=== PATIENT | female | born 1960 | race Caucasian/White ===

== ENCOUNTER 2021-08-30 02:59 | Day surgery (SDC) | payer OTHER, SELFPAY ==
[2021-08-21 14:10] VITALS: BMI 35.2
[2021-08-30 08:50] VITALS: BP 120/86; PULSE 78; RESP 18; TEMP 36.6; O2SAT 99
[2021-08-30] MEDS: LACTATED RINGERS 1,000 ML 150 ML IV CONT (09:00)
--- NOTE | 2021-08-30 09:20 | P.PNAN_ITS ---
Anes - Initial Pre Proc Eval Procedure: Operation Date: 08/30/21 09:30 Proposed Procedures p Screening Colonoscopy - Cayden Forde MD Date/Time: 08/30/21 09:20 Surgeon: Cayden Forde MD Pre Op Diagnosis: neoplasm screening Patient Data Age: 61 Gender: F Height: 1.65 m Weight: 101.9 kg Last Vital Signs Temp 98 F 08/30/21 08:50 Pulse 78 08/30/21 08:50 Resp 18 08/30/21 08:50 BP 120/86 08/30/21 08:50 Pulse Ox 99 08/30/21 08:50 Allergies Allergy/AdvReac Type Severity Reaction Status Date / Time Sulfa (Sulfonamide Allergy Unknown Other Verified 08/30/21 08:49 Antibiotics) Contrast Media Allergy Intermediate rash Uncoded 08/30/21 08:49 Home Medications Medication Instructions Recorded Confirmed Type amlodipine 2.5 mg PO DAILY 08/21/21 08/21/21 History ergocalciferol (vitamin D2) 50,000 unit PO WEEKLY 08/21/21 08/21/21 History Patient hx anesthesia problems: none Family hx anesthesia problems: none Results Review: All pre-operative results and documents have been reviewed as part of the pre-operative evaluation. [facility] Past Medical History Medical History (Updated 08/30/21 @ 09:16 by Armond Hawkins MD) Asthma GERD (gastroesophageal reflux disease) Hypertension Family History Family History (Updated 07/06/14 @ 07:13 by DOCTOR UNKNOWN) Mother Hypertension Social History Social History Smoking status: Never smoker Alcohol intake: current Alcohol use details: Occasionally Living arrangements: with family Spiritual care concerns: No Anes - Eval Final PreProcedure Day of Procedure 08/30/21 09:20 Patient weight: obese Heart: regular rate and rhythm Lungs: clear to auscultation Airway: Mallampati scale class II Neurological: alert and oriented Last oral intake: >/= 8 hours ASA classification: III Emergent: no Anesthetic plan: proceed Anesthesia type and monitoring: general GIVS and standard monitoring Results Review: All pre-operative results and documents have been reviewed as part of the pre-operative evaluation. Informed Consent: The patient's anesthetic plan and its attendant risks and benefits were discussed with the patient/family/POA. Questions were solicited and answers provided to the satisfaction of the patient/family/POA.
--- NOTE | 2021-08-30 09:23 | WPDGICN ---
Assessment and Plan Assessment and plan (1) Encounter for screening colonoscopy: Code(s): Z12.11 - Encounter for screening for malignant neoplasm of colon Status: Acute Assessment and Plan: Patient presents for screening colonoscopy. Appears to be at average risk for colon polyps. Further recommendations will be given after endoscopy. GI Consult Note Consult date/time: 08/30/21 09:23 HPI: Barbara Martinez is a 61 year old female Presents for screening colonoscopy. Patient reports that her current weight appetite bowel movements are normal. She denies abdominal pain. She has had no bleeding. Family history is noncontributory. She did have a previous colonoscopy more than 10 years ago that revealed no polyps. Review of Systems Review of Systems: All systems reviewed & are unremarkable except as noted in HPI and below PMFSH Past Medical History Medical History (Updated 08/30/21 @ 09:24 by Cayden Forde MD) Asthma GERD (gastroesophageal reflux disease) Hypertension Family History Family History (Updated 07/06/14 @ 07:13 by DOCTOR UNKNOWN) Mother Hypertension Social History Social History Smoking status: Never smoker Alcohol intake: current Alcohol use details: Occasionally Living arrangements: with family Spiritual care concerns: No Meds Home Medications and Allergies Home Medications Medication Instructions Recorded Confirmed Type amlodipine 2.5 mg PO DAILY 08/21/21 08/21/21 History ergocalciferol (vitamin D2) 50,000 unit PO WEEKLY 08/21/21 08/21/21 History Allergies Allergy/AdvReac Type Severity Reaction Status Date / Time Sulfa (Sulfonamide Allergy Unknown Other Verified 08/30/21 08:49 Antibiotics) Contrast Media Allergy Intermediate rash Uncoded 08/30/21 08:49 Vital Signs Vital Signs - 24 hr 08/30/21 08:50 Temperature 98 F Pulse Rate 78 Respiratory Rate 18 Blood Pressure 120/86 Pulse Oximetry 99 Exam Narrative: Physical exam reveals patient to be alert. Vital signs stable. HEENT exam is unremarkable. Patient is anicteric. Lungs are clear to auscultation and percussion. Heart is without murmur or extra sounds. Abdominal exam bowel sounds are present soft nontender with no organomegaly. Digital external rectal exam is normal.
[2021-08-30 10:10] VITALS: BP 119/74; PULSE 79; RESP 20; O2SAT 99
[2021-08-30 10:20] VITALS: BP 142/78; PULSE 72; RESP 20; O2SAT 99
[2021-08-30 10:30] VITALS: BP 139/74; PULSE 74; RESP 20; O2SAT 100
== END 2021-08-30 10:43 | disposition home or self-care (01) ==
PROVIDERS: PCP Physician Assistant; Visit Provider Internal Medicine Gastroenterology
PROC: 0DJD8ZZ Inspection of Lower Intestinal Tract, Via Natural or Artificial Opening Endoscopic (ICD-10-PCS; CPT 45378; principal; 2021-08-30 09:30)
DX: Z12.11 Encounter for screening for malignant neoplasm of colon (principal); K64.8 Other hemorrhoids; J45.909 Unspecified asthma, uncomplicated; K21.9 Gastro-esophageal reflux disease without esophagitis; I10 Essential (primary) hypertension; E66.9 Obesity, unspecified; Z68.37 Body mass index [BMI] 37.0-37.9, adult
CPT/HCPCS: 45378; J2405; J2704; J7120

== ENCOUNTER 2022-08-06 12:29 | Outpatient (CLI) | payer OTHER, SELFPAY ==
--- NOTE | 2022-08-06 12:59 | ECG_ITS ---
Measurements Intervals [place] Rate: 70 P: 20 WA: 155 QRS: -10 QRSD: 101 T: 19 QT: 397 QTc: 431 Interpretive Statements SINUS RHYTHM INCOMPLETE RIGHT BUNDLE BRANCH BLOCK VOLTAGE CRITERIA FOR LVH BORDERLINE T WAVE ABNORMALITY- ANTERIOR LEADS BASELINE ARTIFACT- I, II, III, V3 BORDERLINE ECG NO PREVIOUS ECG AVAILABLE FOR COMPARISON Electronically Signed On 08-06-2022 14:25:34 CDT by Juan Borden D.O.
== END 2022-08-06 12:30 | disposition home or self-care (01) ==
PROVIDERS: PCP Physician Assistant; Visit Provider Orthopaedic Surgery
DX: Z01.810 Encounter for preprocedural cardiovascular examination (principal); I10 Essential (primary) hypertension; I45.19 Other right bundle-branch block
CPT/HCPCS: 93005

== ENCOUNTER 2022-08-07 02:00 | Day surgery (SDC) | payer OTHER, SELFPAY ==
[2022-08-05 12:48] VITALS: BMI 34.9
--- NOTE | 2022-08-05 13:00 | PC.NURSE ---
Report to the Outpatient Waiting Room, entrance under the green pavilion located off [facility], at time 10:00 on date 08/07/22. OR Time: 12:00. Time changes happen often and if your time is changed the preop area will call you the afternoon before. - You and your visitor will be asked to self-screen and do not enter if you have any COVID symptoms. - Only one visitor and NO children visitors are allowed at this time. - The patient visitor is requested to leave or wait in car when not with patient due to restrictions. - A mask is required within the hospital. Patients may have clear liquids (water, carbonated beverages, clear teas, apple juice) until 3 hours prior to surgery (9:00) with a maximum of 20 ounces. - No food from midnight until time of surgery Take the following medications with a SIP of water the morning of surgery: N/A Medications to discontinue per physician: VITAMINS Date to take last dose: NO MORE UNTIL AFTER SURGERY Please no make-up, nail divehi, hairspray, perfume, deodorant, or body powder the day of surgery. No jewelry (including any body piercings) or valuables the day of surgery, leave them at home. Please take a shower or bath the night before, or the morning of, surgery with an antibacterial soap. Wear comfortable, loose fitting clothing. - Jewelry must be removed prior to entering the operating room. Rings and piercings that are not removed may be cut off. - The hospital will not accept responsibility for valuables. - Please leave all valuables, including medications, at home the day of surgery. If you are going home after surgery, a licensed tractor driver must drive you home. - NO public transportation without another adult. - We recommend that an adult stay with you for 24 hours following discharge. - We also recommend that you do not drive, make important decision, drink alcoholic beverages, or take any drugs that were not prescribed by your health care provider for at least 24 hours after your discharge time. Follow any additional instructions given to you from your surgeon. If you or anyone in your household have experienced Covid symptoms in the past week, please notify your surgeon or the nurse liaison at the phone number below for possible testing. Telephone instructions given to PT - KIKE MOONEY and asked if any additional questions and then verbalized understanding. Patient advised to call surgeon office or pre surgery nurse liaison [phone] if any additional questions.
--- NOTE | 2022-08-06 13:16 | WPDANESEPPF ---
Anes - Initial Pre Proc Eval Procedure: Operation Date: 08/07/22 12:00 Proposed Procedures p Open Reduction Internal Fixation of Left Wrist Fracture - Sheldon Campos MD Date/Time: 08/06/22 13:16 Surgeon: Sheldon Campos MD Pre Op Diagnosis: left distal radius fracture Patient Data Age: 62 Gender: F Height: 1.65 m Weight: 95.25 kg Allergies Allergy/AdvReac Type Severity Reaction Status Date / Time Sulfa (Sulfonamide Allergy Unknown Rash Verified 08/07/22 10:14 Antibiotics) Contrast Media Allergy Intermediate rash Uncoded 08/07/22 10:14 Home Medications Medication Instructions Recorded Confirmed Type amlodipine 2.5 mg tablet 2.5 mg PO DAILY 08/21/21 08/07/22 History ergocalciferol (vitamin D2) 1,250 50,000 unit PO WEEKLY 08/21/21 08/07/22 History mcg (50,000 unit) capsule hydrocodone 5 mg-acetaminophen 325 1 tablet PO Q6H PRN pain #30 tabs 08/07/22 Rx mg tablet ibuprofen 800 mg tablet 800 mg PO TID PRN pain #30 tabs 08/07/22 Rx ondansetron 8 mg disintegrating 8 mg PO Q8H PRN nausea and 08/07/22 Rx tablet vomiting #10 tabs sennosides 8.6 mg-docusate sodium 1 tab-cap PO BID PRN constipation 08/07/22 Rx 50 mg tablet (Senna with Docusate #20 tabs Sodium) Patient hx anesthesia problems: none Family hx anesthesia problems: none Results Review: All pre-operative results and documents have been reviewed as part of the pre-operative evaluation. [facility] Past Medical History Medical History (Updated 08/06/22 @ 13:17 by Noah Oates MD) Asthma GERD (gastroesophageal reflux disease) HTN (hypertension) Hypertension Left wrist pain Wrist fracture, left Surgical History Surgical History History of surgery on wrist Rt wrist ORIF distal radius fx. Family History Family History Mother Hypertension Social History Social History Smoking status: Never smoker Alcohol intake: current Alcohol use details: Occasionally Substance use: never Substance use type: does not use Living arrangements: with family Spiritual care concerns: No Anes - Eval Final PreProcedure Day of Procedure 08/06/22 13:16 Patient weight: obese Heart: regular rate and rhythm Lungs: clear to auscultation Airway: Mallampati scale class II Neurological: alert and oriented Last oral intake: >/= 8 hours ASA classification: III Emergent: no Anesthetic plan: proceed Anesthesia type and monitoring: general LMA and standard monitoring Results Review: All pre-operative results and documents have been reviewed as part of the pre-operative evaluation. Informed Consent: The patient's anesthetic plan and its attendant risks and benefits were discussed with the patient/family/POA. Questions were solicited and answers provided to the satisfaction of the patient/family/POA.
--- NOTE | 2022-08-06 13:18 | WPDANESPNB ---
Anes - Peripheral Nerve Block Date/Time: 08/06/22 13:18 I have discussed with the patient/family/POA the placement of a peripheral nerve block for post-operative pain management, including associated risks, benefits, complications, and side effects. Alternative methods of post-operative analgesia were detailed. Questions were solicited and answers provided to the satisfaction of the patient/family/POA. Time-Out: A pre-procedural Time-Out was completed immediately before starting the procedure and confirmed: Patient Identification, Site, Procedure, Patient Position and the Availability of Requisite Equipment. Clinical Indications: Acute post-operative pain management requested by the operative surgeon. Nerve Block Insertion Note Anes-nerve block: supraclavicular left Patient position: supine Skin prep: chlorhexidine Needle: 22 gauge, stimulating, insulated echogenic needle. Needle length: 80 mm Technique: ultrasound (in plane) Injectate: bupivacaine 0.5% with epi 5 mcg/ml (20cc) Observations: tolerated well Complications: none Procedure start time:: 1145 Procedure end time:: 1150
[2022-08-07] VITALS (7 sets, daily range): BP systolic 115–153; BP diastolic 56–99; PULSE 66–85; RESP 12–18; TEMP 36.4; O2SAT 96–99
--- NOTE | ~2022-08-07 | XR_ITS ---
EXAMINATION: XR surgery orthopedic DATE: 08/07/2022 15:18 INDICATION: ORIF left wrist fracture TECHNIQUE: 3 fluoroscopic images of the left wrist were obtained during procedure performed by Dr. Kevin barth. Radiologist was not present for the imaging or procedure. The amount of fluoroscopy time used during this procedure was 0.2 minutes. COMPARISON: None. FINDINGS: Interval open reduction and internal fixation of the previously dorsally impacted comminuted intra-ar ticular fracture of the distal left radius. Alignment is now near-anatomic with neutral tilt of the d istal articular surface. Unchanged minimally displaced fracture across the base of the ulnar styloid process which remains unfixed. Mild osteoarthritis at the first carpometacarpal joint. Expected small amount of soft tissue gas the operative bed. IMPRESSION: 1. Near-anatomic alignment post open reduction internal fixation of a comminuted intra-articular frac ture of the distal left radius. 2. Unchanged minimally displaced unfixed ulnar styloid avulsion fracture. Reviewed, dictated and finalized at location A. IMPRESSION: 1. Near-anatomic alignment post open reduction internal fixation of a comminute d intra-articular fracture of the distal left radius. 2. Unchanged minimally displaced unfixed ulnar styloid avulsion fracture.
--- NOTE | 2022-08-07 07:06 | WPDHPUPDATE1 ---
History and Physical Update Update Date/Time: 08/07/22 07:06 History and Physical has been reviewed, including an updated exam of the patient. There are NO changes in the patient's condition. Risks, benefits, and alternatives have been discussed and questions answered. Patient agrees to proceed with procedure.
[2022-08-07] MEDS: ACETAMINOPHEN 500 MG TABLET 1000 MG PO (10:25)
[2022-08-07] MEDS: LACTATED RINGERS 1,000 ML 30 ML IV CONT (10:45)
[2022-08-07] MEDS: KETOROLAC 15 MG/ML VIAL (*BKC) IV PUSH (11:30)
[2022-08-07] MEDS: ceFAZolin 2 GM/D5W 50 ML 2 GM/50 ML BAG IVPB (11:57)
--- NOTE | 2022-08-07 13:16 | W.PM.PROC2 ---
Procedure Note - Detailed Date of Procedure 08/07/22 Pre-op Diagnosis left distal radius fracture Post-op Diagnosis Same Procedure Performed Open reduction internal fixation left distal radius fracture with comminution fixation of greater than 3 fragments, intra-articular. Surgeon Sheldon Campos MD Vice President Financial preschool assistant Anesthesia General Indications 62-year-old woman with left distal radius fracture with comminution and intra-articular extension as well as angulation. Patient desires operative treatment. Findings Comminuted fracture with multiple pieces, intra-articular. Description of Procedure After informed consent the operative extremity was marked in the preoperative holding area. Patient received intravenous antibiotics. Patient taken to the operating room where they underwent general anesthesia. Positioned supine on operating table. Time-out performed confirming the patient, patient's site of surgery and the plan. Left upper extremity prepped and draped in the usual sterile surgical fashion using a ChloraPrep skin solution. Hand and wrist exsanguinated and arm tourniquet inflated to 225 mmHg. Standard volar flexor carpi radialis incision utilized. Fifteen blade knife used to make longitudinal incision. Flexor carpi radialis tendon identified tendon sheath incised in line with skin incision. Tendon retracted to protect the neurovascular elements. Floor of the tendon sheath incised with a 15 blade knife. Flexor pollicis retracted medial. pronator quadratus then divided off the watershed line and reflected ulnarward to expose the distal radius and the fracture. Fracture was then reduced provisionally pinned. Image intensification confirm reduction. Fixation achieved with the distal radius volar plate. This was provisionally pinned into place and confirmed with image intensification. Fixation to the proximal fragment with a 3.5 mm screw. Distal fracture fixation achieved with 2.0 mm locking pegs and 2.0 mm fully threaded locking screws for the radial styloid. Fixation was then completed proximally with the remaining 3.5 mm screws. Final reduction of the fracture, alignment of the wrist joint and placement of the hardware verified with image intensification. Wound thoroughly irrigated with antibiotic solution. Pronator repaired with 3 0 Monocryl interrupted suture. Skin closed with interrupted subcutaneous 000 Monocryl interrupted suture and running 4-0 nylon stitch. Sterile dressing applied. Padded dressing and splint then applied. Tourniquet released and good capillary refill noted in the fingers and thumb. Patient awoke from anesthesia, extubated and taken to the recovery room in stable condition. All sponge and instrument counts correct at the end of case. Implants [employer] distal radius volar locking plate with 3.5 mm screws x3 and locking smooth pegs distally. Estimated Blood Loss -1.0 Tourniquet Time 55 Drains No Packing No Pathology None sent Complications None Condition Stable Disposition PACU
== END 2022-08-07 15:09 | disposition home or self-care (01) ==
PROVIDERS: PCP Physician Assistant; Visit Provider Orthopaedic Surgery
PROC: (CPT 25575; principal; 2022-08-07 12:00)
DX: S62.102A Fracture of unspecified carpal bone, left wrist, initial encounter for closed fracture (principal); W01.0XXA Fall on same level from slipping, tripping and stumbling without subsequent striking against object, initial encounter; Y93.01 Activity, walking, marching and hiking
CPT/HCPCS: 25609; 93005; 99199; A9270; C1713; J0690; J1100; J1170; J1885; J2250; J2370; J2405; J2704; J3010; J7120

== ENCOUNTER 2024-02-26 10:33 | Outpatient (CLI) | payer OTHER, SELFPAY ==
--- NOTE | ~2024-02-26 | XR_ITS ---
EXAMINATION: XR abdomen/kub 1V DATE: 02/26/2024 10:52 INDICATION: Calculus of kidney. TECHNIQUE: A supine view of the abdomen on 2 radiographs was obtained. COMPARISON: None. FINDINGS: There are no dilated loops of bowel. There are multiple stones in left kidney measuring up to 2.9 cm. There is an 8 x 6 mm calcification in the area of proximal right ureter at L5-S1. There ar e phleboliths in the pelvis. IMPRESSION: 1. Left kidney stones. 2. 8 x 6 mm calcification in the area of proximal right ureter that may be a ureteral stone or phlebo lith. Reviewed, dictated and finalized at location E. IMPRESSION: 1. Left kidney stones. 2. 8 x 6 mm calcification in the area of proximal right ureter that may be a ur eteral stone or phlebolith.
== END 2024-02-26 10:34 ==
PROVIDERS: PCP Urology; Visit Provider Urology
DX: N20.2 Calculus of kidney with calculus of ureter (principal)
CPT/HCPCS: 74018

== ENCOUNTER 2024-03-03 00:36 | Day surgery (SDC) | payer OTHER, SELFPAY ==
[2024-03-02 08:30] VITALS: BMI 34.9
--- NOTE | 2024-03-02 08:34 | PC.NURSE ---
Report to the Outpatient Waiting Room, entrance under the green pavilion located off [facility], at time 1245 on date 03/03/24. Planned Procedure Time: 1445. Time changes happen often and if your time is changed the preop area will call you the afternoon before. - You and your visitor will be asked to self-screen and do not enter if you have any COVID symptoms. - A mask is optional within the hospital at this time. Patients may have clear liquids (water, carbonated beverages, clear teas, apple juice) until 3 hours prior to surgery with a maximum of 20 ounces. - No food from midnight until time of surgery Take the following medications with a SIP of water the morning of surgery: NONE DO NOT STOP ANY OF YOUR OTHER PRESCRIPTION MEDICATIONS PRIOR TO SURGERY ?EXCEPT THE FOLLOWING Medications to discontinue per physician: VITAMINS Date to take last dose: NO MORE UNTIL AFTER SURGERY Please no make-up, nail emirati, hairspray, perfume, deodorant, or body powder the day of surgery. No jewelry (including any body piercings) or valuables the day of surgery, leave them at home. Please take a shower or bath the night before, or the morning of, surgery with an antibacterial soap. Wear comfortable, loose fitting clothing. - Jewelry must be removed prior to entering the operating room. Rings and piercings that are not removed may be cut off. - The hospital will not accept responsibility for valuables. - Please leave all valuables, including medications, at home the day of surgery. If you are going home after surgery, a licensed explosives truck driver must drive you home. - NO public transportation without another adult if you receive anesthesia. - We recommend that an adult stay with you for 24 hours following discharge. - We also recommend that you do not drive, make important decision, drink alcoholic beverages, or take any drugs that were not prescribed by your health care provider for at least 24 hours after your discharge time. Follow any additional instructions given to you from your surgeon. If you or anyone in your household have experienced Covid symptoms in the past week, please notify your surgeon or the nurse liaison at the phone number below for possible testing. Telephone instructions given to LOLIS STOKES and asked if any additional questions and then verbalized understanding. Patient advised to call surgeon office or pre surgery nurse liaison [phone] if any additional questions.
[2024-03-03] VITALS (8 sets, daily range): BP systolic 147–156; BP diastolic 68–88; PULSE 65–80; RESP 14–20; TEMP 36.6–36.8; O2SAT 98–100
--- NOTE | ~2024-03-03 | XR_ITS ---
EXAMINATION: XR retrograde pyelo w/stent RT DATE: 03/03/2024 15:41 INDICATION: Right ureteral stone. TECHNIQUE: 3 intraoperative spot fluoroscopic views of the abdomen and pelvis were obtained. I was no t present. Fluoroscopy exposure time was 68 seconds. COMPARISON: None. FINDINGS: The right-sided retrograde pyelogram demonstrates right hydronephrosis. The final images de monstrate a right internal ureteral stent in expected position. IMPRESSION: 1. Right internal ureteral stent in expected position. Reviewed, dictated and finalized at location E.
--- NOTE | 2024-03-03 06:09 | WPDHPUPDATE1 ---
History and Physical Update Update Date/Time: 03/03/24 06:09 History and Physical has been reviewed, including an updated exam of the patient. There are NO changes in the patient's condition. Risks, benefits, and alternatives have been discussed and questions answered. Patient agrees to proceed with procedure.
[2024-03-03] MEDS: LACTATED RINGERS 1,000 ML 30 ML IV CONT (13:24)
--- NOTE | 2024-03-03 13:36 | ECG_ITS ---
SEE SCANNED COPY FOR CONFIRMED REPORT MTDD
--- NOTE | 2024-03-03 14:10 | WPDANESEPPF ---
Anes - Initial Pre Proc Eval Procedure: Operation Date: 03/03/24 14:45 Proposed Procedures p Cystoscopy, Right Ureteroscopy, Right Stone Extraction, Possible Right Retrograde Pyelogram, Possible Right Stent Placement, Possible Holmium Laser - Pk Lozano MD Date/Time: 03/03/24 14:10 Surgeon: Pk Lozano MD Pre Op Diagnosis: Rt Ureteral Stone Patient Data Age: 63 Gender: F Height: 1.65 m Weight: 103 kg Last Vital Signs Temp 98.3 F 03/03/24 13:00 Pulse 72 03/03/24 13:00 Resp 16 03/03/24 13:00 BP 150/73 H 03/03/24 13:00 Pulse Ox 99 03/03/24 13:00 O2 Del Method Room Air 03/03/24 13:00 Allergies Allergy/AdvReac Type Severity Reaction Status Date / Time Sulfa (Sulfonamide Allergy Unknown Rash Verified 03/03/24 13:37 Antibiotics) Contrast Media Allergy Intermediate rash Uncoded 03/03/24 13:37 Home Medications Medication Instructions Recorded Confirmed Type albuterol sulfate 90 mcg/actuation 1 inh inhalation PRN PRN Shortness 10/20/23 03/03/24 History aerosol inhaler Of Breath amlodipine 2.5 mg tablet 2.5 mg PO DAILY #90 tabs 11/25/23 03/03/24 Rx escitalopram oxalate 10 mg tablet 10 mg PO DAILY #30 tabs 02/01/24 03/03/24 Rx meclizine 12.5 mg tablet 12.5 mg PO TID PRN dizziness #30 02/01/24 03/03/24 Rx tabs cholecalciferol (vitamin D3) 25 25 mcg PO DAILY 03/02/24 03/03/24 History mcg (1,000 unit) tablet (Vitamin D3) Patient hx anesthesia problems: none Family hx anesthesia problems: none Results Review: All pre-operative results and documents have been reviewed as part of the pre-operative evaluation. [facility] Past Medical History Medical History Allergic rhinitis Asthma Generalized anxiety disorder GERD (gastroesophageal reflux disease) HTN (hypertension) Vertigo Surgical History Surgical History History of surgery on wrist Rt wrist ORIF distal radius fx. Left ORIF wrist on 08/07/[address] Campos Family History Family History Mother Hypertension Father Throat cancer Diabetes mellitus Heart disease Social History Social History Smoking status: Never smoker Alcohol intake: current Alcohol use details: RARE Substance use: never Substance use type: does not use Do You Feel Safe in your Home?: Yes Lack of Transportation: No Lack of Food: Never True Current Housing: I Have Housing Concerned About Future Housing: No Difficulty Paying Gas/Electric Bills: No Difficulty Paying for Meds: No Currently Unemployed: YES Education: Master's Degree or Higher Difficulty w/ Childcare or Family Care: No Living arrangements: with family Occupation/Education: retired Gender identity (if verbalized by the patient): Female Sexual Orientation (if Verbalized by the Patient): Straight or Heterosexual Spiritual care concerns: No Anes - Eval Final PreProcedure Day of Procedure 03/03/24 14:10 Patient weight: normal Heart: regular rate and rhythm Lungs: clear to auscultation Airway: Mallampati scale Neurological: alert and oriented Last oral intake: >/= 8 hours ASA classification: III Emergent: no Anesthetic plan: proceed Anesthesia type and monitoring: general and standard monitoring Results Review: All pre-operative results and documents have been reviewed as part of the pre-operative evaluation. Pt states that she walks regularly, short distances, no cp or sob. Informed Consent: The patient's anesthetic plan and its attendant risks and benefits were discussed with the patient/family/POA. Questions were solicited and answers provided to the satisfaction of the patient/family/POA.
--- NOTE | 2024-03-03 15:36 | W.PM.PROC2 ---
Procedure Note - Detailed Date of Procedure 03/03/24 Pre-op Diagnosis Rt Ureteral Stone Post-op Diagnosis Same Procedure Performed Cystoscopy, right ureteroscopy with laser lithotripsy, stone extraction, retrograde pyelography and stent placement Surgeon Pk Lozano MD Anesthesia General Description of Procedure patient brought the op suite where she has prepped draped in routine sterile fashion while in dorsal lithotomy position after the uneventful induction of a general anesthetic. Cystoscopy undertaken with a 19 F rigid cystoscope. There was no intravesical foreign body or neoplasm and bladder mucosa is without hyperemia or signs of neoplastic changes. She has a single orthotopic ureteral orifice bilaterally. Bladder neck and urethra endoscopically normal. A 0.035 in glidewire was advanced in to her right renal pelvis and the distal ureter was dilated with an 8 F 10 F dilator. Ureteroscopy was undertaken with a short tapered semi-rigid ureteral scope. She has a very impacted 8 mm right mid ureteral calculus. Using a 200 micron Rusty laser fiber and a dusting mode I fractured the stone into multiple tiny pieces, all of which were removed with a 1.9 F disposable stone basket. A 4.8 F variable length stent is positioned with proximal coil in the renal pelvis and distal coil in the bladder. Scopes wires were removed and she was taken recovery room in good condition. Drains No Packing No Pathology None sent Complications No immediate complications Condition Stable
== END 2024-03-03 17:20 | disposition home or self-care (01) ==
PROVIDERS: PCP Physician Assistant; Visit Provider Urology
PROC: (CPT 52352; principal; 2024-03-03 14:45)
DX: N20.1 Calculus of ureter (principal); I10 Essential (primary) hypertension; F41.9 Anxiety disorder, unspecified; K21.9 Gastro-esophageal reflux disease without esophagitis; J45.909 Unspecified asthma, uncomplicated; Z79.51 Long term (current) use of inhaled steroids; Z98.890 Other specified postprocedural states; Z82.49 Family history of ischemic heart disease and other diseases of the circulatory system; Z80.1 Family history of malignant neoplasm of trachea, bronchus and lung
CPT/HCPCS: 52356; 74420; 82365; 88300; 93005; C1769; C1894; C2617; J2250; J3010; J7120; Q9966

== ENCOUNTER 2024-04-18 10:28 | Emergency (ER) | payer OTHER, SELFPAY ==
--- NOTE | ~2024-04-18 | XR_ITS ---
Clinical Indication: Cough PA and lateral views of the chest: Comparison: None Findings: Hazy right upper lobe airspace consolidation is compatible with pneumonia. Left lung clear. Cardiomediastinal silhouette is within normal limits. Bones and soft tissues are unremarkable. Impression: Right upper lobe pneumonia. Reviewed, dictated and finalized at location . Impression: Right upper lobe pneumonia.
--- NOTE | 2024-04-18 10:41 | ED.URI ---
HPI - URI/Sore Throat General Chief Complaint: Upper Respiratory Infection Stated Complaint: Been sick/can't take deep breaths Time Seen by Provider: 04/18/24 10:46 Source: patient Mode of arrival: ambulatory Limitations: no limitations History of Present Illness HPI Narrative: 63-year-old female presented for complaint of persistent cough for over 1 week. Endorses right rib pain with deep breath and with coughing, and shortness of breath when walking up stairs. Endorses at the onset she had fever, vomiting, and fatigue. She tested negative for COVID at the time. She has been taking Mucinex for symptoms. Denies chest pain, heart racing, wheezing or lethargy. Related Data Home Medications Medication Instructions Recorded Confirmed albuterol sulfate 90 mcg/actuation 1 inh inhalation PRN PRN Shortness 10/20/23 04/18/24 aerosol inhaler Of Breath cholecalciferol (vitamin D3) 25 25 mcg PO DAILY 03/02/24 04/18/24 mcg (1,000 unit) tablet (Vitamin D3) Allergies Allergy/AdvReac Type Severity Reaction Status Date / Time Sulfa (Sulfonamide AdvReac Mild Rash Verified 04/18/24 10:31 Antibiotics) Contrast Media AdvReac Mild rash Uncoded 04/18/24 10:31 Review of Systems Review of Systems: CONSTITUTIONAL: Denies body aches, fever, chills, or sweats. EYES: Denies visual changes, redness, or discharge. ENT: Denies rhinorrhea, congestion, sore throat, or otalgia. CARDIOVASCULAR: Denies chest pain, palpitations, or edema. RESPIRATORY: Reports cough, denies sob, wheezing. GASTROINTESTINAL: Denies abdominal pain, nausea, vomiting, or diarrhea. SKIN: Denies rash, itching, or wounds. MUSCULOSKELETAL: reports right rib pain Denies back pain, joint pain, or myalgia. NEUROLOGIC: Denies headache, numbness, tingling, or weakness. All systems reviewed & are unremarkable except as noted in HPI and below PMFSH Past Medical History Medical History Allergic rhinitis Asthma Generalized anxiety disorder GERD (gastroesophageal reflux disease) HTN (hypertension) Vertigo Surgical History Surgical History History of surgery on wrist Rt wrist ORIF distal radius fx. Left ORIF wrist on 08/07/[address] Campos Family History Family History Mother Hypertension Father Throat cancer Diabetes mellitus Heart disease Social History Social History Smoking status: Never smoker Alcohol intake: current Alcohol use details: RARE Substance use: never Substance use type: does not use Do You Feel Safe in your Home?: Yes Lack of Transportation: No Lack of Food: Never True Current Housing: I Have Housing Concerned About Future Housing: No Difficulty Paying Gas/Electric Bills: No Difficulty Paying for Meds: No Currently Unemployed: YES Education: Master's Degree or Higher Difficulty w/ Childcare or Family Care: No Living arrangements: with family Occupation/Education: retired Gender identity (if verbalized by the patient): Female Sexual Orientation (if Verbalized by the Patient): Straight or Heterosexual Spiritual care concerns: No Comments At time of signature, I have reviewed and agree with nursing past medical, surgical, social and family history unless otherwise noted. Please see nursing chart for further information. There is no relevant family history pertinent to the presenting complaint Exam Narrative: GENERAL: Well-appearing, in no acute distress. EYES: EOMI. No redness or drainage. Conjunctivae normal. ENT: Mucous membranes pink and moist. No rhinorrhea. TMs normal bilaterally. Throat normal. Uvula midline. NECK: Normal AROM. Supple. CHEST: No respiratory distress. lungs clear to all parmar. Nontender right rib. HEART: Regular rate and rhythm. No m
[2024-04-18 10:43] VITALS: BP 123/70; PULSE 81; RESP 16; TEMP 36.6; O2SAT 99
== END 2024-04-18 11:32 | disposition home or self-care (01) ==
PROVIDERS: Emergency Provider Nurse Practitioner Family; PCP Physician Assistant
DX: J18.1 Lobar pneumonia, unspecified organism (principal); J45.909 Unspecified asthma, uncomplicated; K21.9 Gastro-esophageal reflux disease without esophagitis; I10 Essential (primary) hypertension
CPT/HCPCS: 71046; 99213; G0463

== ENCOUNTER 2024-05-17 13:47 | Emergency (ER) | payer OTHER, SELFPAY ==
--- NOTE | 2024-05-17 13:51 | ED.GENADULT ---
HPI - General Adult General Chief complaint: Upper Respiratory Infection Stated complaint: congestion/tightness in chest Time Seen by Provider: 05/17/24 13:55 Source: patient, RN notes reviewed and old records reviewed Mode of arrival: ambulatory Limitations: no limitations History of Present Illness HPI narrative: 63 yo female presents to the [facility] with Conplaints of congestion, states has been going on for ?maybe a week. ? Patient was seen and treated for Pneumonia 04/18/24 Patient states she has a history of asthma, has allergies to cats however she does have 2 cats that are currently living with her that her her daughters. Has been sleeping or napping with hats. Patient states that she noticed some wheezing. Has not used her albuterol inhaler. Unsure if it is still good. Patient denies any chest pain. Denies any shortness of breath currently. Denies any fevers Related Data Home Medications Medication Instructions Recorded Confirmed albuterol sulfate 90 mcg/actuation 1 inh inhalation PRN PRN Shortness 10/20/23 05/17/24 aerosol inhaler Of Breath cholecalciferol (vitamin D3) 25 25 mcg PO DAILY 03/02/24 05/17/24 mcg (1,000 unit) tablet (Vitamin D3) cetirizine 10 mg tablet (Zyrtec) 10 mg PO DAILY 05/17/24 05/17/24 Allergies Allergy/AdvReac Type Severity Reaction Status Date / Time Sulfa (Sulfonamide AdvReac Mild Rash Verified 05/17/24 14:10 Antibiotics) Contrast Media AdvReac Mild rash Uncoded 05/17/24 14:10 Review of Systems Review of Systems: All systems reviewed & are unremarkable except as noted in HPI and below Constitutional: Constitutional: Reports no additional constitutional complaints Eyes: Eyes: Reports no additional eye complaints ENT: Reports system reviewed and no additional complaints, except as documented Cardiovascular: Cardiovascular: Reports no additional cardiovascular complaints, Denies chest pain and Denies dyspnea Respiratory: Respiratory: Reports as per HPI, Denies chest congestion, Denies cough, Reports dyspnea and Reports wheezing Gastrointestinal: Gastrointestinal: Reports no additional gastrointestinal complaints, Denies abdominal pain, Denies nausea and Denies vomiting Musculoskeletal: Musculoskeletal: Reports no additional musculoskeletal complaints Integumentary/Breasts: Skin/Breast: Reports system reviewed and no additional complaints, except as docu Neurologic: Reports system reviewed and no additional complaints, except as documented Psychiatric: Psychiatric: Reports no additional psychiatric complaints Allergic/Immunologic: Allergic/Immunologic: Reports no additional allergic/immunologic complaints [facility] Past Medical History Medical History Allergic rhinitis Asthma Generalized anxiety disorder GERD (gastroesophageal reflux disease) HTN (hypertension) Vertigo Surgical History Surgical History History of surgery on wrist Rt wrist ORIF distal radius fx. Left ORIF wrist on 08/07/[address] Campos Family History Family History Mother Hypertension Father Throat cancer Diabetes mellitus Heart disease Social History Social History Smoking status: Never smoker Alcohol intake: current Alcohol use details: RARE Substance use: never Substance use type: does not use Do You Feel Safe in your Home?: Yes Lack of Transportation: No Lack of Food: Never True Current Housing: I Have Housing Concerned About Future Housing: No Difficulty Paying Gas/Electric Bills: No Difficulty Paying for Meds: No Currently Unemployed: YES Education: Master's Degree or Higher Difficulty w/ Childcare or Family Care: No Living arrangements: with family Occupation/Education: retired Gender identity (if verbalized by the patien
[2024-05-17 13:55] VITALS: BP 142/79; PULSE 72; RESP 15; TEMP 36.2; O2SAT 98
== END 2024-05-17 14:14 | disposition home or self-care (01) ==
PROVIDERS: Emergency Provider Nurse Practitioner; PCP Physician Assistant
DX: J45.909 Unspecified asthma, uncomplicated (principal); K21.9 Gastro-esophageal reflux disease without esophagitis; I10 Essential (primary) hypertension
CPT/HCPCS: 99213; G0463

== ENCOUNTER 2024-08-01 11:45 | Outpatient (CLI) | payer OTHER, SELFPAY ==
--- NOTE | ~2024-08-01 | XR_ITS ---
XR abdomen/kub 1V Ordering provider: Leroy Velarde MD History: . Kidney stone . Comparison: February 26, 2024 FINDINGS: BOWEL: Nonobstructive bowel gas pattern. ORGANOMEGALY: None. SIGNIFICANT PATHOLOGIC CALCIFICATIONS: None. OTHER: No free air is seen under the diaphragm. Degenerative changes of the spine. IMPRESSION: NO ACUTE ABDOMINAL FINDINGS. Reviewed, dictated and finalized at location A.
== END 2024-08-01 11:46 | disposition home or self-care (01) ==
PROVIDERS: PCP Urology; Visit Provider Urology
DX: N20.0 Calculus of kidney (principal)
CPT/HCPCS: 74018

== ENCOUNTER 2024-09-09 10:59 | Emergency (ER) | payer OTHER, SELFPAY ==
--- NOTE | ~2024-09-09 | XR_ITS ---
EXAMINATION: XR chest 2V DATE: 09/09/2024 11:30 INDICATION: Cough. TECHNIQUE: Frontal and lateral views of the chest were obtained. COMPARISON: Chest 2 views 04/18/2024 FINDINGS: There is no pneumonia, pleural effusion, or pneumothorax. The heart size is normal. IMPRESSION: 1. No acute cardiopulmonary disease. Reviewed, dictated and finalized at location B.
[2024-09-09 11:10] VITALS: BP 114/69; PULSE 80; RESP 16; TEMP 36.3; O2SAT 99
--- NOTE | 2024-09-09 11:13 | ED.GENADULT ---
HPI - General Adult General Chief complaint: Asthma Stated complaint: side pain, chest pain Time Seen by Provider: 09/09/24 11:17 Source: patient, RN notes reviewed and old records reviewed Mode of arrival: ambulatory Limitations: no limitations History of Present Illness HPI narrative: 64-year-old female presents to the [facility] with cough, shortness of breath, wheezing. Reports a history of asthma. Patient is most concerned that she has pneumonia. States that she felt a twinge in her lung earlier. States it felt like when she had pneumonia a couple months ago. Patient is in no acute distress. However patient is wheezing. Patient states that she used her inhaler once time this morning Symptoms started approximately 4-5 days ago Related Data Home Medications Medication Instructions Recorded Confirmed cholecalciferol (vitamin D3) 25 25 mcg PO DAILY 03/02/24 09/09/24 mcg (1,000 unit) tablet (Vitamin D3) cetirizine 10 mg tablet (Zyrtec) 10 mg PO DAILY 05/17/24 09/09/24 Allergies Allergy/AdvReac Type Severity Reaction Status Date / Time Sulfa (Sulfonamide AdvReac Mild Rash Verified 09/09/24 11:10 Antibiotics) Contrast Media AdvReac Mild rash Uncoded 09/09/24 11:10 Review of Systems Review of Systems: All systems reviewed & are unremarkable except as noted in HPI and below Constitutional: Constitutional: Reports no additional constitutional complaints ENT: Reports system reviewed and no additional complaints, except as documented Cardiovascular: Cardiovascular: Reports no additional cardiovascular complaints, Denies chest pain and Denies dyspnea Respiratory: Respiratory: Reports as per HPI, Denies chest congestion, Reports cough, Reports dyspnea and Reports wheezing Gastrointestinal: Gastrointestinal: Reports no additional gastrointestinal complaints, Denies abdominal pain, Denies nausea and Denies vomiting Musculoskeletal: Musculoskeletal: Reports no additional musculoskeletal complaints Integumentary/Breasts: Skin/Breast: Reports system reviewed and no additional complaints, except as docu PMFSH Past Medical History Medical History Allergic rhinitis Asthma Generalized anxiety disorder GERD (gastroesophageal reflux disease) HTN (hypertension) Vertigo Surgical History Surgical History History of surgery on wrist Rt wrist ORIF distal radius fx. Left ORIF wrist on 08/07/[address] Campos Family History Family History Mother Hypertension Father Throat cancer Diabetes mellitus Heart disease Social History Social History Smoking status: Never smoker Alcohol intake: current Alcohol use details: RARE Substance use: never Substance use type: does not use Do You Feel Safe in your Home?: Yes Lack of Transportation: No Lack of Food: Never True Current Housing: I Have Housing Concerned About Future Housing: No Difficulty Paying Gas/Electric Bills: No Difficulty Paying for Meds: No Currently Unemployed: YES Education: Master's Degree or Higher Difficulty w/ Childcare or Family Care: No Living arrangements: with family Occupation/Education: retired Gender identity (if verbalized by the patient): Female Sexual Orientation (if Verbalized by the Patient): Straight or Heterosexual Spiritual care concerns: No Comments At the time of my signature, I reviewed and agree with the nursing past medical, surgical, social, and family history. There is no relevant family history pertinent to the patient complaint. Exam Const: General: cooperative, healthy appearing, comfortable, no acute distress, well developed, alert and well nourished Nutritional Appearance: well nourished Orientation/consciousness: patient oriented x3 Limitations: no limitations HENMT: Head: normal to inspection Ears: hearing grossly normal bilaterally, external ears normal, TM's normal bilaterally, EAC's normal, mastoids normal and no periauricular adenopathy Face/Nose/Sinus: Normal external nose present, normal facial exam and face symmetric Face and sinus: normal facial exam and face symmetric Mouth: Yes Normal oral and palatal mucosa present, Yes lip normal and Yes tongue normal Throat: posterior oropharynx normal, uvula midline and no uvular edema Eyes: General: appearance normal, both eyes and all related structures Alignment and Position: alignment normal Periorbital: periorbital findings normal Neck: Neck: normal visual inspection, full ROM, no lymphadenopathy and no meningeal signs Chest: Chest palpation & inspection: normal inspection of the chest Resp: Effort & Inspection: normal respiratory effort and able to speak in complete sentences Auscultation: no crackles, no rales, no rhonchi and wheezes expiratory wheezes and scattered wheezes Cardio: Rate: regular rate Skin: General skin exam: normal color and no rashes or lesions noted Lesions: no lesions Rashes: no rashes Wounds: no wounds Neuro: General: patient oriented x3, gait normal, tone normal, moves all extremities and no meningeal signs Cognition (Neuro): normal cognition Speech: normal speech Gait exam (Neuro): Normal gait present Extrem: General: normal to inspection, full ROM, capillary refill normal and normal gait Psych: Appearance: grossly normal and well kempt Mental Status: mental status grossly normal Speech and movement: Normal speech and movement present and Clear speech present Affect: normal affect Attitude: cooperative Course Course Level of Care: Express Care Visit Vital Signs Vital signs: Vital Signs Temperature 97.3 F L 09/09/24 11:10 Pulse Rate 80 09/09/24 11:10 Respiratory Rate 16 09/09/24 11:10 Blood Pressure 114/69 09/09/24 11:10 Pulse Oximetry 99 09/09/24 11:10 Oxygen Delivery Room Air 09/09/24 11:10 Temperature 97.3 F L 09/09/24 11:10 Pulse Rate 90 09/09/24 11:54 Respiratory Rate 20 09/09/24 11:54 Blood Pressure 114/69 09/09/24 11:10 Pulse Oximetry 99 09/09/24 11:54 Oxygen Delivery Room Air 09/09/24 11:28 Reviewed Medical Decision Making MDM Narrative Medical decision making narrative: Patient sitting comfortably in exam room. Nontoxic, vitals stable. Patient in no acute distress Patient presents for cough, wheezing, concerns for pneumonia Breathing treatment, lungs cleared after treatment. Patient's lungs showed no acute abnormalities. Patient appropriate for asthma exacerbation with outpatient treatment and close follow-up. Discharge instructions reviewed with patient, as well as provided in writing per nursing staff. The instructions also include specific and strict return/GO TO THE ER as well as f/u information. All questions have been answered, and the patient deny any further questions with discharge and discharge plan. Some parts of this dictation were generated by voice recognition software and may contain typographical and/or grammatical inaccuracies. Differential Diagnosis Differential Diagnosis: Asthma, bronchitis, pneumonia, URI Medical Records Medical records reviewed: Yes I reviewed the external patient's medical records. Vital Signs Vital Signs: Vital Signs Temperature 97.3 F L 09/09/24 11:10 Pulse Rate 80 09/09/24 11:10 Respiratory Rate 16 09/09/24 11:10 Blood Pressure 114/69 09/09/24 11:10 Pulse Oximetry 99 09/09/24 11:10 Oxygen Delivery Room Air 09/09/24 11:10 Temperature 97.3 F L 09/09/24 11:10 Pulse Rate 90 09/09/24 11:54 Respiratory Rate 20 09/09/24 11:54 Blood Pressure 114/69 09/09/24 11:10 Pulse Oximetry 99 09/09/24 11:54 Oxygen Delivery Room Air 09/09/24 11:28 Reviewed Lab Data Lab results reviewed: Yes I reviewed the patient's lab results. Labs: Reviewed Critical Care Time Critical Care Time Critical Care Time: No Discharge Plan Discharge Clinical Impression: Asthma with acute exacerbation Patient Disposition: Home, Self-Care Condition: Stable Instructions: Antibiotic Form, Asthma (DC) Additional Instructions: Use your albuterol inhaler every 4-5 hours while awake for 3 days then as needed Take steroid as prescribed Most importantly is following up with your primary care provider within the next week. For worsening symptoms please go directly to the emergency room Patient Language: Latvian Prescriptions: New prednisone 50 mg tablet 50 mg PO DAILY Qty: 5 0RF No Action cetirizine [Zyrtec] 10 mg Tablet 10 mg PO DAILY albuterol sulfate 90 mcg/actuation HFA aerosol inhaler 2 puff inhalation QID PRN (Reason: shortness of breath or wheezing) Qty: 6.7 0RF (DME) Aerochamber MV Spacer See Rx Instructions .Route Qty: 1 0RF Rx Instructions: As directed escitalopram oxalate 10 mg tablet 10 mg PO DAILY Qty: 30 5RF Patient Comments: HAS NOT STARTED YET cholecalciferol (vitamin D3) [Vitamin D3] 25 mcg (1,000 unit) Tablet 25 mcg PO DAILY amlodipine 2.5 mg tablet 2.5 mg PO DAILY Qty: 90 1RF Patient Comments: TAKES AT HS Follow-up/Referrals: Jose Alejandro,SAVANNA Paiz [Primary Care Provider] - 1 Week ([facility] follow-up) Stand Alone Forms: Work/School Release IP Time of Disposition: 11:51
[2024-09-09 11:28] VITALS: RESP 22; O2SAT 99
[2024-09-09] MEDS: IPRATROPIUM 0.5 MG/ALBUTEROL SULFATE 2.5 MG AMPUL.NEB 3 ML INHALATION (11:32)
[2024-09-09 11:37] VITALS: PULSE 80; RESP 22; O2SAT 99
[2024-09-09 11:54] VITALS: PULSE 90; RESP 20; O2SAT 99
== END 2024-09-09 11:55 | disposition home or self-care (01) ==
PROVIDERS: Emergency Provider Nurse Practitioner; PCP Physician Assistant
DX: J45.901 Unspecified asthma with (acute) exacerbation (principal); I10 Essential (primary) hypertension; K21.9 Gastro-esophageal reflux disease without esophagitis
CPT/HCPCS: 71046; 99213; G0463

== ENCOUNTER 2024-09-30 08:18 | Emergency (ER) | payer OTHER, SELFPAY ==
[2024-09-30 08:47] VITALS: BP 116/75; PULSE 86; RESP 16; TEMP 36.3; O2SAT 100
[2024-09-30 08:58] LABS: EDUAAPPEAR Cloudy; EDUABILI 1+ (Negative); EDUABLOOD 3+ (Negative); EDUACOLOR1 Yellow; EDUAGLUCOSE Trace (Negative); EDUAKETONE Trace (Negative); EDUALEUKO 1+ (Negative); EDUANITRATE Positive (Negative); EDUAPROTEIN 3+ (Negative)
--- NOTE | 2024-09-30 09:08 | ED.FEMALEGU ---
HPI - Female Genitourinary General Chief complaint: Urogenital-Female Stated complaint: uti symptoms Time Seen by Provider: 09/30/24 09:10 Source: patient, RN notes reviewed and old records reviewed Mode of arrival: ambulatory Limitations: no limitations History of Present Illness HPI Narrative: 64-year-old femalepresents to the [facility] with urinary symptoms. Reports frequency, urgency, burning with urination. Symptoms started today Related Data Home Medications Medication Instructions Recorded Confirmed cholecalciferol (vitamin D3) 25 25 mcg PO DAILY 03/02/24 09/30/24 mcg (1,000 unit) tablet (Vitamin D3) cetirizine 10 mg tablet (Zyrtec) 10 mg PO DAILY 05/17/24 09/30/24 budesonide-formoterol HFA 160 1 inh inhalation DIRECTED 09/30/24 09/30/24 mcg-4.5 mcg/actuation aerosol inhaler Allergies Allergy/AdvReac Type Severity Reaction Status Date / Time Sulfa (Sulfonamide Allergy Mild Rash Verified 09/30/24 09:08 Antibiotics) Contrast Media Allergy Mild rash Uncoded 09/30/24 09:08 Review of Systems Review of Systems: All systems reviewed & are unremarkable except as noted in HPI and below Constitutional: Constitutional: Reports no additional constitutional complaints ENT: Reports system reviewed and no additional complaints, except as documented Cardiovascular: Cardiovascular: Reports no additional cardiovascular complaints, Denies chest pain and Denies dyspnea Respiratory: Respiratory: Reports no additional respiratory complaints, Denies chest congestion, Denies cough and Denies dyspnea Gastrointestinal: Gastrointestinal: Reports no additional gastrointestinal complaints, Denies abdominal pain, Denies nausea and Denies vomiting Genitourinary: Genitourinary: Reports as per HPI and Reports dysuria Musculoskeletal: Musculoskeletal: Reports no additional musculoskeletal complaints Integumentary/Breasts: Skin/Breast: Reports system reviewed and no additional complaints, except as docu PMFSH Past Medical History Medical History Allergic rhinitis Asthma Generalized anxiety disorder GERD (gastroesophageal reflux disease) HTN (hypertension) Vertigo Surgical History Surgical History History of surgery on wrist Rt wrist ORIF distal radius fx. Left ORIF wrist on 08/07/[address] Grebing Family History Family History Mother Hypertension Father Throat cancer Diabetes mellitus Heart disease Social History Social History Smoking status: Never smoker Alcohol intake: current Alcohol use details: RARE Substance use: never Substance use type: does not use Do You Feel Safe in your Home?: Yes Lack of Transportation: No Lack of Food: Never True Current Housing: I Have Housing Concerned About Future Housing: No Difficulty Paying Gas/Electric Bills: No Difficulty Paying for Meds: No Currently Unemployed: YES Education: Master's Degree or Higher Difficulty w/ Childcare or Family Care: No Living arrangements: with family Occupation/Education: retired Gender identity (if verbalized by the patient): Female Sexual Orientation (if Verbalized by the Patient): Straight or Heterosexual Spiritual care concerns: No Comments At the time of my signature, I reviewed and agree with the nursing past medical, surgical, social, and family history. There is no relevant family history pertinent to the patient complaint. Exam Const: General: cooperative, healthy appearing, comfortable, no acute distress, well developed, alert and well nourished Nutritional Appearance: well nourished Orientation/consciousness: patient oriented x3 Limitations: no limitations HENMT: Head: normal to inspection Ears: hearing grossly normal bilaterally and external ears normal Face/Nose/Sinus: Normal external nose present, normal facial exam and face symmetric Face and sinus: normal facial exam and face symmetric Eyes: General: appearance normal, both eyes and all related structures Alignment and Position: alignment normal Periorbital: periorbital findings normal Neck: Neck: normal visual inspection, full ROM, no lymphadenopathy and no meningeal signs Chest: Chest palpation & inspection: normal inspection of the chest Resp: Effort & Inspection: normal respiratory effort and able to speak in complete sentences Auscultation: clear to auscultation bilaterally, no crackles, no rales, no rhonchi and no wheezes Cardio: Rate: regular rate GI: GI Palp: No abdominal tenderness : General: Yes no CVA tenderness Skin: General skin exam: normal color and no rashes or lesions noted Lesions: no lesions Rashes: no rashes Wounds: no wounds Neuro: General: patient oriented x3, gait normal, tone normal, moves all extremities and no meningeal signs Cognition (Neuro): normal cognition Speech: normal speech Gait exam (Neuro): Normal gait present Extrem: General: normal to inspection, full ROM, capillary refill normal and normal gait Psych: Appearance: grossly normal and well kempt Mental Status: mental status grossly normal Speech and movement: Normal speech and movement present and Clear speech present Affect: normal affect Attitude: cooperative Course Course Level of Care: Express Care Visit Vital Signs Vital signs: Vital Signs Temperature 97.4 F L 09/30/24 08:47 Pulse Rate 86 09/30/24 08:47 Respiratory Rate 16 09/30/24 08:47 Blood Pressure 116/75 09/30/24 08:47 Pulse Oximetry 100 09/30/24 08:47 Oxygen Delivery Room Air 09/30/24 08:47 Temperature 97.4 F L 09/30/24 08:47 Pulse Rate 86 09/30/24 08:47 Respiratory Rate 16 09/30/24 08:47 Blood Pressure 116/75 09/30/24 08:47 Pulse Oximetry 100 09/30/24 08:47 Oxygen Delivery Room Air 09/30/24 08:47 Reviewed MDM - Female Genitourinary MDM Narrative Medical decision making narrative: patient sitting comfortably in exam. Nontoxic, vitals stable. Patient in no acute distress patient presents with concerns for UTI patient has positive urine dip, will culture patient appropriate for outpatient treatment With close follow-up Discharge instructions reviewed with patient, as well as provided in writing per nursing staff. The instructions also include specific and strict return/GO TO THE ER as well as f/u information. All questions have been answered, and the patient deny any further questions with discharge and discharge plan. Some parts of this dictation were generated by voice recognition software and may contain typographical and/or grammatical inaccuracies. Differential Diagnosis Differential diagnosis: Likely urinary tract infection and cystitis Lab Data Labs: Lab Results 09/30/24 Range/Units 08:54 POC Urine Color Yellow POC Urine Clarity Cloudy POC Urine pH 6.0 POC Ur Specif Kenyon 1.030 POC Urine Protein 3+ (Negative) POC Ur Glucose (UA) Trace (Negative) POC Urine Ketones Trace (Negative) POC Urine Blood 3+ (Negative) POC Urine Nitrite Positive (Negative) POC Urine Bilirubin 1+ (Negative) POC Urine Urobilinogen 1.0 POC U Leukocyte Esteras 1+ (Negative) Reviewed Critical Care Time Critical Care Time Critical Care Time: No Discharge Plan Discharge Clinical Impression: Urinary tract infection Patient Disposition: Home, Self-Care Condition: Stable Instructions: Antibiotic Form, Urinary Tract Infection in Women (DC) Additional Instructions: Increased water intake Take Tylenol as needed for pain Take antibiotic as prescribed Today your urine dip showed a probability of a UTI. You have been prescribed an antibiotic. Your urine will be sent to our lab for a culture. If at that time a bacteria grows that is not covered by the antibiotic prescribed you will be notified. Follow-up with primary care For new or worsening symptoms go directly to the emergency room Patient Language: Belarusian Prescriptions: New amoxicillin-pot clavulanate 875-125 mg tablet 1 tablet PO Q12H Qty: 10 0RF No Action cetirizine [Zyrtec] 10 mg Tablet 10 mg PO DAILY albuterol sulfate 90 mcg/actuation HFA aerosol inhaler 2 puff inhalation QID PRN (Reason: shortness of breath or wheezing) Qty: 6.7 0RF (DME) Aerochamber MV Spacer See Rx Instructions .Route Qty: 1 0RF Rx Instructions: As directed budesonide-formoterol 160-4.5 mcg/actuation HFA aerosol inhaler 1 inh INHALATION DIRECTED escitalopram oxalate 10 mg tablet 10 mg PO DAILY Qty: 30 5RF Patient Comments: HAS NOT STARTED YET cholecalciferol (vitamin D3) [Vitamin D3] 25 mcg (1,000 unit) Tablet 25 mcg PO DAILY amlodipine 2.5 mg tablet 2.5 mg PO DAILY Qty: 90 1RF Patient Comments: TAKES AT Follow-up/Referrals: Jose Alejandro,SAVANNA Paiz [Primary Care Provider] - 1 Week ([facility] care follow up) Time of Disposition: 09:25
== END 2024-09-30 09:30 | disposition home or self-care (01) ==
PROVIDERS: Emergency Provider Nurse Practitioner; PCP Physician Assistant
DX: N39.0 Urinary tract infection, site not specified (principal); I10 Essential (primary) hypertension
CPT/HCPCS: 81003; 87086; 87186; 99213; G0463

== ENCOUNTER 2025-06-22 08:43 | Outpatient (CLI) | payer OTHER, SELFPAY ==
--- NOTE | ~2025-06-22 | DEXA_ITS ---
Bone Density Report Name: KIKE MOONEY Age: 65 Sex: Female Ethnicity: White Date of : 1960 Indication: postmenopausal; screening for osteoporosis; asthma or emphysema; Referring Provider: AUREA, SUSI Study: Bone densitometry was performed. Exam Date: June 22, 2025 Accession number: [id number] Bone Density: Region BMD T-score Z-score Classification AP Spine(L1-L4) 0.957 -0.8 0.9 Normal Femoral Neck (Left) 0.762 -0.8 0.7 Normal Total Hip (Left) 0.847 -0.8 0.4 Normal Femoral Neck (Right) 0.681 -1.5 0.0 Osteopenia Total Hip (Right) 0.834 -0.9 0.3 Normal Total Hip Mean 0.840 -0.9 0.4 Normal World Health Organization criteria for BMD impression classify patients as: Normal (T-score at or above -1.0), Osteopenia (T-score between -1.0 and -2.5), or Osteoporosis (T-score at or below -2.5). 10-year Fracture Risk(1): Major Osteoporotic Fracture 8.0% Hip Fracture 0.8% Reported Risk Factors: [place] (), Neck BMD=0.681, BMI=37.4 (1) FRAX(R) Version 3.08. Fracture probability calculated for an untreated patient. Fracture probability may be lower if the patient has received treatment. Clinical Information Provided by Patient: Has used the following medications: Vitamin D, Calcium Has the following medical conditions: Asthma or Emphysema Patient maximum height was 65 Menopause Age: 56 Does not regularly consume dairy products Drinks caffeinated beverages Onset of menses at age 13 Number of children 2 Impression: The patient has low bone mass, based on the Right Femoral Neck T-score. The patient has an estimated ten-year risk of hip fracture of 0.8% and an estimated ten-year risk of major fracture of 8%, based on the WHO FRAX algorithm. Discussion: BONE DENSITY IS LOW AT ONE OR MORE SKELETAL SITES. This patient's lowest T-score is low at one or more skeletal sites. It meets the World Health Organization's (WHO) criteria for ?low bone mass? (T-score between -1.0 and -2.5). The patient's 10-year risk of fracture as calculated by FRAX is less than the threshold where pharmacological therapy is recommended by the National Osteoporosis Foundation (NOF). However, all treatment decisions require clinical judgment and consideration of individual patient factors, including patient preferences, comorbidities, previous drug use, risk factors not captured in the FRAX model (e.g., frailty, falls, vitamin D deficiency, increased bone turnover, interval significant decline in bone density) and possible under or overestimation of fracture risk by FRAX. The patient should follow a healthful lifestyle (good nutrition with adequate calcium and vitamin D, and appropriate weight-bearing exercise). Follow-Up: Consider repeating this study in 2 to 3 years to reassess this patient's status, or sooner if there is some new clinical indication. Reported by: JULIA on 06/22/2025 9:15:00 AM. Reviewed, dictated and finalized at location A.
== END 2025-06-22 08:44 | disposition home or self-care (01) ==
LOC: MICIMG 08:44
PROVIDERS: PCP Physician Assistant; Visit Provider Physician Assistant
DX: Z78.0 Asymptomatic menopausal state (principal); M85.851 Other specified disorders of bone density and structure, right thigh
CPT/HCPCS: 77080

== ENCOUNTER 2025-09-18 12:48 | Outpatient (CLI) | payer OTHER, SELFPAY ==
--- NOTE | ~2025-09-18 | XR_ITS ---
Examination: XR abdomen/kub 1V Clinical History: Calculus of kidney Comparison: Abdominal radiographs 08/01/2024 Technique: 2 views supine AP abdomen Findings: A few small round calcifications left upper quadrant. Largest 4 mm. Lung bases clear. Scattered colonic gas and stool. Small bowel loops not well seen. No evidence of organomegaly. No acute bony abnormality. Pelvic phleboliths. IMPRESSION: 1. A few small stones left kidney. Less likely colonic contents. 2. No other acute abnormality. Reviewed, dictated and finalized at location R. 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
== END 2025-09-18 12:49 | disposition home or self-care (01) ==
PROVIDERS: PCP Physician Assistant; Visit Provider Nurse Practitioner Family
DX: N20.0 Calculus of kidney (principal)
CPT/HCPCS: 74018

== ENCOUNTER 2025-10-20 10:43 | Outpatient (CLI) | payer OTHER, SELFPAY ==
--- NOTE | 2025-10-20 11:02 | ECG_ITS ---
Test Date: 2025-10-20 11:13:49 Measurements Intervals Cora Rate: 63 P: 23 IA: 139 QRS: -1 QRSD: 106 T: 10 QT: 445 QTc: 458 Interpretive Statements SINUS RHYTHM INCOMPLETE RIGHT BUNDLE BRANCH BLOCK LEFT VENTRICULAR HYPERTROPHY POOR R WAVE PROGRESSION BORDERLINE T WAVE ABNORMALITY- ANTERIOR LEADS BASELINE ARTIFACT- I, II, AVR, AVL, AVF, V1-V6 BORDERLINE ECG No previous ECG available for comparison Electronically Signed On 10-20-2025 11:24:20 PRECIPITATOR by Juan Borden D.O.
[2025-10-20 12:25] LABS: INR 1.0; Prothrombin Time 13.4 Seconds (11.1-14.7)
[2025-10-20 12:26] LABS: Partial Thromboplastin Time 25.7 Seconds (22.3-36.8)
== END 2025-10-20 10:44 | disposition home or self-care (01) ==
PROVIDERS: PCP Physician Assistant; Visit Provider Urology
DX: N20.0 Calculus of kidney (principal); I10 Essential (primary) hypertension; Z01.818 Encounter for other preprocedural examination
CPT/HCPCS: 36415; 85610; 85730; 87086; 93005

== ENCOUNTER 2025-10-27 02:47 | Day surgery (SDC) | payer OTHER, SELFPAY ==
[2025-10-20 09:27] VITALS: BMI 34.8
--- NOTE | 2025-10-20 09:35 | PC.NURSE ---
[facility] has started construction of its new state of the art ER which will open Spring 2026. With this, we anticipate parking may be a challenge for some our surgical patients and families. Parking spaces are limited but are available for all Surgical, obstetrics, and ER patients sharing this lot. If you arrive and find you are having a hard time finding a parking space, please note that we understand the challenges, please drive around the hospital and park near Hospital Entrance 1. When you enter this entrance, you can ask a volunteer to direct or take you back to the surgical waiting area to check in. We appreciate everyone?s understanding of these expected challenges while we build for your future. Report to the Outpatient Waiting Room, entrance under the green pavilion located off [address], at time __06:00am on date __10/27/25 . Planned Procedure Time: __07:30am .? Time changes happen often and if your time is changed the preop area will call you the afternoon before. - You and your visitor will be asked to self-screen and do not enter if you have any COVID symptoms. Please call surgeon if you need to reschedule. - A mask is optional within the hospital at this time. Patients may have clear liquids (water, carbonated beverages, clear teas, apple juice) until 3 hours prior to surgery with a maximum of 20 ounces. - No food from midnight until time of surgery and no smoking, or chewing tobacco (or any form of nicotine). No chewing gum, candy or mints. (04:30am) Take only the following medications with a SIP of water on the morning of surgery: Citalopram and Tylenol if needed DO NOT STOP ANY OF YOUR OTHER PRESCRIPTION MEDICATIONS PRIOR TO SURGERY EXCEPT THE FOLLOWING Hold all vitamins and supplements for 3 days per anesthesiologist. Medications to discontinue per physician NONE Date to take last dose NONE Please no make-up, nail divehi, hairspray, perfume, deodorant, or body powder the day of surgery.? No jewelry (including any body piercings) or valuables the day of surgery, leave them at home.? Please take a shower or bath the night before, or the morning of, surgery with an antibacterial soap DIAL. ? Wear comfortable, loose fitting clothing.? - Jewelry must be removed prior to entering the operating room.? Rings and piercings that are not removed may be cut off. - The hospital will not accept responsibility for valuables.? - Please leave all valuables, including medications, at home the day of surgery. If you are going home after surgery, a licensed parts delivery driver must drive you home.? - NO public transportation without another adult if you receive anesthesia. - We recommend that an adult stay with you for 24 hours following discharge. - We also recommend that you do not drive, make important decision, drink alcoholic beverages, or take any drugs that were not prescribed by your health care provider for at least 24 hours after your discharge time. Follow any additional instructions given to you from your surgeon. Telephone instructions given to ___Patient and asked if any additional questions and then verbalized understanding. Patient advised to call surgeon office or pre surgery nurse liaison [phone] if any additional questions.
[2025-10-27] VITALS (7 sets, daily range): BP systolic 115–147; BP diastolic 64–89; PULSE 63–67; RESP 13–18; TEMP 36.4; O2SAT 98–100
--- NOTE | ~2025-10-27 | XR_ITS ---
EXAM/PROCEDURE: XR abdomen/kub 1V HISTORY: ESWL COMPARISON: None available. TECHNIQUE: KUB FINDINGS: Probable left-sided kidney stones not as well seen on this exam with moderate to large amount of overlying stool and bowel gas. No large right-sided kidney stones. The bones appear stable. Lung bases appear clear. IMPRESSION: No definite change in left-sided kidney stones described on the September 18 exam. Nonspecific bowel gas pattern. Reviewed, dictated and finalized at location A. ESS DEVELOPMENT ASSOCIATE IMPRESSION: No definite change in left-sided kidney stones described on the September 18 exa m. Nonspecific bowel gas pattern.
--- OUTSIDE RECORDS SUMMARY | 2025-10-27 02:50 | XMS_ITS | Clinical Summary ---
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 Name Role Phone Unavailable Primary Care Provider Unavailabl e Social History Tobacco Use Types Packs/Day Years Used Date Smoking Tobacco: Never Assessed Comments Unknown Sex and Gender Information Value Date Recorded Sex Assigned at Not on file Legal Sex Female 8:14 PM CDT Gender Identity Not on file Sexual Orientation Not on file Plan of Treatment Health Maintenance Due Date Last Done Comments Cervical Cancer Screening Pa p Smear (Age 30 to 64) Every 3 Years 1960 Colorectal Cancer Screening Colonoscopy (10 Years) 1961 Annual Physical 1964 Hepatitis C 1979 DTaP, Tdap and Td Vaccines ( 1 - Tdap) 1980 Cervical Cancer Screening Pa p with HPV Testing (Age 30 to 64) Every 5 Years 1991 Cervical Cancer Screening with HPV 1991 Mammogram Screening 2001 Pneumococcal Vaccine: 50+ Ye ars (1 of 1 - PCV) 2011 Zoster Vaccines (1 of 2) 2011 COVID-19 Vaccine (2024-2 6 season) 2025 Influenza Adult (#1) 2025 RSV Immunization or 60+ Years (1 - 1-dose 75+ series) 2036 Hepatitis A Vaccines Aged Out No long er eligible based on patient's age to complete this topic Meningococcal B Vaccine Aged Out No l onger eligible based on patient's age to complete this topic Meningococcal Vaccine Aged Out No barbie ronnie eligible based on patient's age to complete this topic RSV Immunizations Under 20 Months Aged Out No longer eligible based on patient's age to complete this topic
--- OUTSIDE RECORDS SUMMARY | 2025-10-27 02:50 | XMS_ITS | Data Portability ---
Author Organization [facility] Address [address] [place] [address] Care Team Providers Care Dock Operations Supervisor Name Role Phone SUSI VILLAR Primary Care Provider Unavailab le Assessment Encounter Date Assessment Date Assessment LastModified by Organization Details LastModified Time 09/20/2024 09/20/2024 colonoscopy UTD within time frame mammogram jul 2024. eye and dental UTD Not available 09/20/2024 14:56:45 04/19/2025 04/19/2025 colonoscopy UTD within time frame mammogram jul 2024. eye and dental UTD Not available 04/19/2025 10:45:38 Plan of Treatment Reminders Order Date Submit Date Provider Last Modified By Organization Details Last Modified Time Details Appointments ANY 15 2025 10:15A M LORENZA Chaudhary Not available Not available Not available Lab TSH + free T4, serum 2024 025 [facility], [address], [place], [address], 08/05/2025 06:20:00 HbA1c (hemoglob in A1c), blood 2024 025 [facility], [address], [place], [address], 08/05/2025 06:20:02 CMP, serum or plasma 2024 025 [employer] [facility], [address], [place], [address], 08/05/2025 06:20:00 CBC w/ auto diff 2024 025 [employer] [facility], [address], [place], [address], 08/05/2025 06:20:01 vitamin B12 + folate, serum or blood 2024 025 [facility], [address], [place], [address], 08/05/2025 06:20:02 lipid panel, serum 2024 025 [facility], [address], [place], [address], 08/05/2025 06:19:59 CMP, serum or plasma 2023 024 [employer] [facility], [address], [place], [address], 10/25/2024 10:11:26 CBC w/ auto diff 2023 024 [employer] [facility], [address], [place], [address], 10/25/2024 10:12:16 lipid panel, serum 2023 024 [employer] [facility], [address], [place], [address], 10/25/2024 10:11:25 HbA1c (hemoglob in A1c), blood 2023 024 [employer] [facility], [address], [place], [address], 10/25/2024 10:12:16 Referral None recorded. Procedures None recorded. Surgeries None recorded. Imaging DEXA 2023 024 [facility], [address], [place], [address], 06/27/2025 17:06:31 XR, chest, 2 view 2023 024 [facility] ([facility]), [address], [place], [address], 05/03/2024 11:47:41 Medication Orders scopolami ne 1 mg over 3 days transderm al patch 2024 025 [id number], [address], [place], [place], [id number], 10/20/2025 11:13:31 meclizine 25 mg tablet 2024 025 [id number], [address], [place], [id number], 04/19/2025 10:56:52 escitalop nathan 20 mg tablet 2024 025 [email or web address] [facility], [address] [place] [address], [address], 04/19/2025 10:56:43 amlodipin e 2.5 mg tablet 2024 025 [facility], [address] [place] [address], [address], 04/19/2025 10:56:34 Symbicort 160 mcg-4.5 mcg/actua tion HFA aerosol inhaler 2023 025 [id number], [address] [place], [place], [phone], 04/19/2025 10:56:36 Patient TargetsNo targets recorded. Patient Instructions Encounter Date Encounter Id Patient Instructions Last Modified By Organization Details Last Modified Time 09/20/2024 [id number] A healthy lifestyle: care instructions Not available 09/20/2024 15:06:00 04/19/2025 [id number] A healthy lifestyle: care instructions Not available 04/19/2025 10:56:29 Reason for Referral None Reported. Results Created Date Observation Date Name Description Value Unit Range Abnormal Flag Note LastModifiedBy Organization Detail LastModifiedTime 08/04/2008/05/2025 LIPID PANEL WITH RATIO S cholesterol, total 196 mg/dL <200 normal Not Available [facility] [address], [address], 08/05/2025 06:19:59 08/04/2008/05/2025 LIPID PANEL WITH RATIO S HDL cholesterol 55 mg/dL > or = 50 normal Not Available [facility] [address], [address], 08/05/2025 06:19:59 08/04/2008/05/2025 LIPID PANEL WITH RATIO S triglyceride s 82 mg/dL <150 normal Not Available [facility] [address], [address], 08/05/2025 06:19:59 08/04/2008/05/2025 LIPID PANEL WITH RATIO S LDL-choleste rol 123 mg/dL _(davis c) high Refer ence range : <100 Diandra able range <100 mg/dL for prima ry preve ntion ; <70 mg/dL for patie nts with CHD or diabe tic patie nts with > or = 2 CHD risk facto rs. LDL-C is now calcu lated using the Meggan n-Hop kins calcu zoe n, which is a valid ated novel cjo d luzmaria luxte r accur acy than the Fried fide equat ion in the estim ation of LDL-C . Meggan mccormick SS et al. JS. 2013; 310(1 9): 2061- 2068 (http ://ed ucati on.Qu estDi Dakwaks. com/f aq/FA Q164) Not Available [facility] [address], [address], 08/05/2025 06:19:59 08/04/2008/05/2025 LIPID PANEL WITH RATIO S chol/HDLC ratio 3.6 (calc ) <5.0 normal Not Available [address], [address], 08/05/2025 06:19:59 08/04/2008/05/2025 LIPID PANEL WITH RATIO S LDL/HDL ratio 2.2 (calc ) Below avera ge Risk: <2.34 [place] ge Risk: 2.35- 4.12 Moder ate Risk: 4.13- 5.56 High Risk: >5.57 Not Available [address], [address], 08/05/2025 06:19:59 08/04/2008/05/2025 LIPID PANEL WITH RATIO S non HDL cholesterol 141 mg/dL _(davis c) <130 high For patie nts with diabe chloe plus 1 major ASCVD risk facto r, treat ing to a non-H DL-C goal of <100 mg/dL (LDL- C of <70 mg/dL ) is consayanna julieno n. Not Available [address], [address], 08/05/2025 06:19:59 08/04/2008/05/2025 TSH+F REE T4 TSH 1.12 mIU/L 0.40-4 .50 normal Not Available [address], [address], 08/05/2025 06:20:00 08/04/2008/05/2025 TSH+F REE T4 T4, free 1.0 NG/dL 0.8-1. 8 normal Not Available [address], [address], 08/05/2025 06:20:00 08/04/2008/05/2025 COMPR EHENS DAYANA METAB OLIC PANEL glucose 88 mg/dL 65-99 normal Fasti ng refer ence inter chiqui Not Available [address], [address], 08/05/2025 06:20:00 08/04/2008/05/2025 COMPR EHENS DAYANA METAB OLIC PANEL urea nitrogen (BUN) 18 mg/dL 7-25 normal Not Available [address], [address], 08/05/2025 06:20:00 08/04/2008/05/2025 COMPR EHENS DAYANA METAB OLIC PANEL creatinine 0.60 mg/dL 0.50-1 .05 normal Not Available [address], [address], 08/05/2025 06:20:00 08/04/2008/05/2025 COMPR EHENS DAYANA METAB OLIC PANEL eGFR 100 mL/mi n/1.7 3m2 > or = 60 normal Not Available [address], [address], 08/05/2025 06:20:00 08/04/2008/05/2025 COMPR EHENS DAYANA METAB OLIC PANEL BUN/creatini ne ratio SEE NOTE: (calc ) 6-22 Not Repor pito: BUN and Creat inine are withi n refer ence range . Not Available [address], [address], 08/05/2025 06:20:00 08/04/2008/05/2025 COMPR EHENS DAYANA METAB OLIC PANEL sodium 141 mmol/ L 135-14 6 normal Not Available [facility] [address], [address], 08/05/2025 06:20:00 08/04/2008/05/2025 COMPR EHENS DAYANA METAB OLIC PANEL potassium 3.7 mmol/ L 3.5-5. 3 normal Not Available [facility] [address], [place], [address], 08/05/2025 06:20:00 08/04/2008/05/2025 COMPR EHENS DAYANA METAB OLIC PANEL chloride 104 mmol/ L 98-110 normal Not Available [address], [address], 08/05/2025 06:20:00 08/04/2008/05/2025 COMPR EHENS DAYANA METAB OLIC PANEL carbon dioxide 28 mmol/ L 20-32 normal Not Available [address], [address], 08/05/2025 06:20:00 08/04/2008/05/2025 COMPR EHENS DAYANA METAB OLIC PANEL calcium 8.3 mg/dL 8.6-10 .4 low Not Available [address], [address], 08/05/2025 06:20:00 08/04/2008/05/2025 COMPR EHENS DAYANA METAB OLIC PANEL protein, total 6.5 g/dL 6.1-8. 1 normal Not Available [address], [address], 08/05/2025 06:20:00 08/04/2008/05/2025 COMPR EHENS DAYANA METAB OLIC PANEL albumin 4.0 g/dL 3.6-5. 1 normal Not Available [facility] [address], [address], 08/05/2025 06:20:00 08/04/2008/05/2025 COMPR EHENS DAYANA METAB OLIC PANEL globulin 2.5 g/dL_ (calc ) 1.9-3. 7 normal Not Available [address], [address], 08/05/2025 06:20:00 08/04/2008/05/2025 COMPR EHENS DAYANA METAB OLIC PANEL albumin/glob ulin ratio 1.6 (calc ) 1.0-2. 5 normal Not Available [address], [address], 08/05/2025 06:20:00 08/04/2008/05/2025 COMPR EHENS DAYANA METAB OLIC PANEL bilirubin, total 1.3 mg/dL 0.2-1. 2 high Not Available [address], [address], 08/05/2025 06:20:00 08/04/2008/05/2025 COMPR EHENS DAYANA METAB OLIC PANEL alkaline phosphatase 80 U/L 37-153 normal Not Available [address], [address], 08/05/2025 06:20:00 08/04/2008/05/2025 COMPR EHENS DAYANA METAB OLIC PANEL AST 14 U/L 10-35 normal Not Available [address], [address], 08/05/2025 06:20:00 08/04/2008/05/2025 COMPR EHENS DAYANA METAB OLIC PANEL ALT 12 U/L 6-29 normal Not Available [address], [address], 08/05/2025 06:20:00 08/04/2008/05/2025 CBC (INCL UDES DIFF/ PLT) white blood cell count 5.6 thous and/u L 3.8-10 .8 normal Not Available [address], [address], 08/05/2025 06:20:01 08/04/2008/05/2025 CBC (INCL UDES DIFF/ PLT) red blood cell count 4.46 linda on/uL 3.80-5 .10 normal Not Available [address], [address], 08/05/2025 06:20:01 08/04/2008/05/2025 CBC (INCL UDES DIFF/ PLT) hemoglobin 13.9 g/dL 11.7-1 5.5 normal Not Available [address], [address], 08/05/2025 06:20:01 08/04/2008/05/2025 CBC (INCL UDES DIFF/ PLT) hematocrit 42.5 % 35.0-4 5.0 normal Not Available [address], [address], 08/05/2025 06:20:01 08/04/2008/05/2025 CBC (INCL UDES DIFF/ PLT) MCV 95.3 fL 80.0-1 00.0 normal Not Available [address], [address], 08/05/2025 06:20:01 08/04/2008/05/2025 CBC (INCL UDES DIFF/ PLT) MCH 31.2 pg 27.0-3 3.0 normal Not Available [address], [address], 08/05/2025 06:20:01 08/04/2008/05/2025 CBC (INCL UDES DIFF/ PLT) MCHC 32.7 g/dL 32.0-3 6.0 normal For adult s, a sligh t decre ase in the calcu lated MCHC value (in the range of 30 to 32 g/dL) is most likel y not clini xiomy signi rebeca t; sandra er, it shoul d be inter prete d with cauti on in corre latio n with other red cell isaiah eters and the patie nt's clini davis condi tion. Not Available [facility] [address], [address], 08/05/2025 06:20:01 08/04/2008/05/2025 CBC (INCL UDES DIFF/ PLT) RDW 12.9 % 11.0-1 5.0 normal Not Available [address], [address], 08/05/2025 06:20:01 08/04/2008/05/2025 CBC (INCL UDES DIFF/ PLT) platelet count 245 thous and/u L 140-40 0 normal Not Available [address], [address], 08/05/2025 06:20:01 08/04/2008/05/2025 CBC (INCL UDES DIFF/ PLT) MPV 9.6 fL 7.5-12 .5 normal Not Available [address], [address], 08/05/2025 06:20:01 08/04/2008/05/2025 CBC (INCL UDES DIFF/ PLT) absolute neutrophils 2699 cells /uL 1500-7 800 normal Not Available [address], [address], 08/05/2025 06:20:01 08/04/2008/05/2025 CBC (INCL UDES DIFF/ PLT) absolute lymphocytes 2078 cells /uL 850-39 00 normal Not Available [address], [address], 08/05/2025 06:20:01 08/04/2008/05/2025 CBC (INCL UDES DIFF/ PLT) absolute monocytes 448 cells /uL 200-95 0 normal Not Available [address], [address], 08/05/2025 06:20:01 08/04/2008/05/2025 CBC (INCL UDES DIFF/ PLT) absolute eosinophils 308 cells /uL 15-500 normal Not Available [address], [address], 08/05/2025 06:20:01 08/04/2008/05/2025 CBC (INCL UDES DIFF/ PLT) absolute basophils 67 cells /uL 0-200 normal Not Available [address], [address], 08/05/2025 06:20:01 08/04/2008/05/2025 CBC (INCL UDES DIFF/ PLT) neutrophils 48.2 % normal Not Available [address], [address], 08/05/2025 06:20:01 08/04/2008/05/2025 CBC (INCL UDES DIFF/ PLT) lymphocytes 37.1 % normal Not Available [address], [address], 08/05/2025 06:20:01 08/04/2008/05/2025 CBC (INCL UDES DIFF/ PLT) monocytes 8.0 % normal Not Available [address], [address], 08/05/2025 06:20:01 08/04/2008/05/2025 CBC (INCL UDES DIFF/ PLT) eosinophils 5.5 % normal Not Available [address], [address], 08/05/2025 06:20:01 08/04/2008/05/2025 CBC (INCL UDES DIFF/ PLT) basophils 1.2 % normal Not Available [address], [address], 08/05/2025 06:20:01 08/04/2008/05/2025 VITAM IN B12/F OLATE , SERUM PANEL vitamin B12 256 pg/mL 200-11 00 normal Pleas e Note: Altho ugh the refer ence range for vitam in B12 is 200-1 100 pg/mL , it has been repor pito that betwe en 5 and 10% of patie nts with value s betwe en 200 and 400 pg/mL may exper ience neuro psych iatri c and hemat ologi c abnor malit ies due to occul t B12 defic iency ; less than 1% of patie nts with value s above 400 pg/mL will have sympt oms. Not Available [facility] [address] [place], [address], 08/05/2025 06:20:02 08/04/2008/05/2025 VITAM IN B12/F OLATE , SERUM PANEL folate, serum 8.1 NG/mL normal Refer ence Range Low: <3.4 Borde rline : 3.4-5 .4 Henna l: >5.4 Not Available [facility] [address] , [place], [address], 08/05/2025 06:20:02 08/04/2008/05/2025 HEMOG LOBIN A1C hemoglobin A1C 5.6 %_of_ total _HGB <5.7 normal For the purpo se of nitin santos for the prese nce of diabe chloe: <5.7% Consi stent with the absen ce of diabe chloe 5.7-6 .4% Consi stent with incre ased risk for diabe chloe (pred iabet es) > or =6.5% Consi stent with diabe chloe This assay resul t is consi stent with a decre ased risk of diabe chloe. Curre ntly, no conse nsus exist omar amos use of hemog lobin A1c for diagn osis of diabe chloe in child [place]. Accor ding to Ameri can Diabe chloe Assoc iatio n (ADA) guide lines , hemog lobin A1c <7.0% repre sents optim al contr ol in non-p regna nt diabe tic patie nts. Diffe rent metri cs may apply to speci fic patie nt popul ation s. Stand ards of Medic al Care in Diabe chloe(A DA). Not Available [facility] [address] [place], [address], 08/05/2025 06:20:02 04/18/20 24 04/18/2024 XR, chest , 2 view No observ ation record ed. [email or web address] [facility] [address], [place], [address], 05/04/2024 12:35:27 05/03/20 24 05/02/2024 XR, chest , 2 view No observ ation record ed. [facility] [address], [place], [address], 05/03/2024 14:11:45 09/09/20 24 09/09/2024 XR, chest , 2 view No observ ation record ed. [email or web address] [facility] [address], [place], [address], 09/20/2024 14:59:17 11/23/19 25 08/30/2021 colon oscop y scree danielle (PROC ) No observ ation record ed. BARCODE Not Available 2024 14:52:30 11/23/19 25 07/17/2023 [email or web address] , scree danielle, digit al, bilat eral No observ ation record ed. [facility] Not Available 2024 14:52:30 11/23/19 25 02/20/2021 DEXA No observ ation record ed. [facility] Not Available 2024 14:52:30 06/27/20 25 06/22/2025 D[facility]A [facility] observ [facility]ion [facility] [address], [place], [address], 07/04/2025 10:15:56 07/19/20 25 07/19/2025 MAMMO , scree danielle, digit al, bilat eral No observ ation record ed. [email or web address] [facility] [address], [place], [address], 07/20/2025 13:46:15 09/18/20 25 09/18/2025 XR, abdom en No observ ation record ed. [email or web address] [facility] [address], [place], [address], 09/18/2025 22:31:36 Result Notes None recorded. Problems Name Problem SNOMED Code Status Onset Date Resolution Date Notes Provider Name and Address Organization Details Recorded Time Hyperlipide zaid 63567007 Active 2023 LORENZA Chaudhary Attn: Keith schmitt,[address] [facility], [place], [address], [facility] 4 18:13:11 Long-term drug therapy Active 2023 LORENZA Chaudhary Attn: Keith schmitt,[address] [facility], [place], [address], [place] [facility] 4 18:13:12 Generalized anxiety disorder 68907010 Active 2023 LORENZA Chaudhary Attn: Keith schmitt,[address] [facility], [place], [address], [place] [facility] 4 18:13:12 Kidney stone 77128308 Active 2023 LORENZA Chaudhary Attn: Keith schmitt,[address] [facility], [place], [address], [place] [facility] 4 18:13:33 Benign essential hypertensio n 1898438 Active 2023 LORENAZ Chaudhary Attn: Keith schmitt,[address] [facility], [place], [address], [place] - [facility] 4 18:13:34 Obesity 345541444 Active 2023 LORENZA Chaudhary Attn: Keith schmitt,[address] [facility], [address], [place] [facility] 4 18:14:37 Body mass index 30+ - obesity 864252737 Active 2023 LORENZA Chaudhary Attn: Keith schmitt,[address] [facility], [place], [address], [place] [facility] 5 11:16:46 Asthma 502201096 Active 2023 LORENZA Chaudhary Attn: Keith schmitt,[address] [facility], [place], [address], [place] [facility] 4 14:40:55 Postmenopau cande state 69337860 Active 2023 LORENZA Chaudhary Attn: Accountlucio schmitt,[address] [facility], [place], [address], [place] [facility] 4 22:32:56 Obese class II 9332140827553 05 Active 2024 LORENZA Chaudhary Attn: Accountlucio schmitt,[address] [facility], [place], [address], [place] [facility] 5 07:21:08 Prediabetes 262134879 Active 2024 LORENZA Chaudhary Attn: Accountlucio g,[address] [facility], [place], [address], [place] [facility] 5 07:21:29 Osteopenia 902405057 Active 2024 LORENZA Chaudhary Attn: Keith g,[address] [facility], [place], [address], [place] [facility] 5 11:00:28 Allergic rhinitis 86875537 Active 2024 LORENZA Chaudhary Attn: Claritzalucio g,[address] [facility], [place], [address], [place] [facility] 5 11:27:49 Problem Notes None recorded. Procedures Surgical History Date Name Laterality Status Provider Name and Address Organization Details Recorded Time Breast Surgery completed oClby De La Rosa MA [facility] 03/22/2024 16:13:23 section completed Colby De La Rosa MA [facility] 03/22/2024 16:13:29 kidney stone analysis completed Colby De La Rosa MA [facility] 09/20/2024 14:34:25 Imaging Results None recorded. Procedure Notes None recorded. Medical Equipment None Reported. Allergies Allergen ID Allergen Name Allergen Category Reaction Reaction Severity Criticality Documentation Date Start Date Code Code System Note Provider Name and Address Organization Details Recorded Time [id number] Substance with sulfonami de structure and antibacte rial mechanism of action (substanc e) medicatio n Not available Not available Not available 03/22/2024 86119 8003 SNOMED DYLAN Soares [facility] 16:13:02 260716 Iodinated contrast media (substanc e) medicatio n rash Not available high 10/25/20252014 87778 2004 SNOMED Not Available kailee - External Data Service - prod 12:34:46 Medications Name Sig Start Date Stop Date Status Note LastModified by Organization Details LastModified Time benzonata te 200 mg capsule TAKE 1 CAPSULE BY MOUTH THREE TIMES DAILY NEEDED FOR COUGH 04/25 completed Patient stated she is no longer taking this medicati on Not Available Not Available Not Available hydrocodo ne 5 mg-acetam inophen 325 mg tablet TAKE 1 TABLET BY MOUTH EVERY 6 HOURS NEEDED FOR PAIN 09/20 completed Not Available Not Available Not Available meclizine 12.5 mg tablet TAKE 1-2 TABLETS BY MOUTH THREE TIMES DAILY NEEDED 10/20 completed virtgo Not Available Not Available Not Available amlodipin e 2.5 mg tablet Take 1 tablet every day by oral route. 2024 active Not Available Not Available Not Avai lable ciproflox acin 500 mg tablet TAKE 1 TABLET BY MOUTH EVERY 12 HOURS FOR 10 DAYS 03/22 completed Not Available Not Available Not Available amoxicill in 500 mg tablet TAKE 2 TABLETS BY MOUTH EVERY 8 HOURS FOR 7 DAYS 09/20 completed Not Available Not Available Not Available meclizine 25 mg tablet TAKE 1 TABLET BY MOUTH THREE TIMES DAILY NEEDED FOR VERTIGO active Not Available Not Available No t Available cephalexi n 500 mg capsule TAKE 1 CAPSULE BY MOUTH EVERY 8 HOURS 03/22 completed Not Available Not Available Not Available prednison e 50 mg tablet TAKE 1 TABLET BY MOUTH DAILY 09/20 completed Not Available Not Available Not Available levofloxa karli 500 mg tablet TAKE 1 TABLET BY MOUTH DAILY 04/19 completed Not Available Not Available Not Available scopolami ne 1 mg over 3 days transderm al patch APPLY 1 PATCH TOPICALL Y TO THE SKIN EVERY 72 HOURS 10/20 completed Not Available Not Available Not Available albuterol sulfate HFA 90 mcg/actua tion aerosol inhaler Inhale 2 puffs every 4 hours by inhalati on route as needed. 2024 active Not Available Not Available Not Avai lable Vitamin D2 1,250 mcg (50,000 unit) capsule Take 1 capsule every week by oral route. 2024 active Not Available Not Available Not Avai lable fluticaso ne propionat e 50 mcg/actua tion nasal spray,zulay pension 2 sprays each nostril daily 2024 active Not Available Not Available Not Avai lable amoxicill in 875 mg-potass ium clavulana te 125 mg tablet 10/20 completed Not Available Not Available Not Available escitalop nathan 10 mg tablet Take 1 tablet every day by oral route. 05/16 completed Not Available Not Available Not Available escitalop nathan 20 mg tablet Take 1 tablet every day by oral route. 2024 active Not Available Not Available Not Avai lable budesonid e-formote rol HFA 160 mcg-4.5 mcg/actua tion aerosol inhaler Inhale 2 puffs twice a day by inhalati on route. 04/19 completed prn- Occasion ally Not Available Not Available Not Available ProChambe r USE DIRECTED active Not Available Not Available No t Available Contrave 8 mg-90 mg tablet,ex tended release WEEK 1 TAKE 1 TABLET IN THE AM, WEEK 2: 1TAB 2 X/DAY, WEEK 3: 2TABS IN AM active Not Available Not Available No t Available albuterol 90 mcg-budes onide 80 mcg/actua tion HFA aerosol inhaler Inhale by inhalati on route. 07/17 completed Not Available Not Available Not Available Vitals Date Recorded Respiratory rate Systolic And Diastolic Provider Name and Address Organization Details Last Updated DateTime 04/19/2025 18 /min 110/80 mm[Hg] LORENZA Chaudhary Attn: Accounting,[address] [place], [address], [facility] 04/19/2025 10:57:09 Date Recorded Body height Body mass index (BMI) Body weight Oxygen saturation Heart rate Systolic And Diastolic Provider Name and Address Organization Details Last Updated DateTime 5 165.1 cm 36.4 kg/m2 29846.7 3 g 96 % 84 /min 108/76 mm[Hg] Colby De La Rosa MA [facility] 5 10:34:14 Date Recorded Respiratory rate Systolic And Diastolic Provider Name and Address Organization Details Last Updated DateTime 04/25/2024 20 /min 120/70 mm[Hg] LORENZA Chaudhary Attn: Accounting,[address] [place], [address], [facility] 04/25/2024 11:04:01 Date Recorded Body height Body mass index (BMI) Body weight Heart rate Oxygen saturation Systolic And Diastolic Provider Name and Address Organization Details Last Updated DateTime 4 165.1 cm 36.9 kg/m2 174332. 79 g 62 /min 99 % 122/70 mm[Hg] Farzana Siegel MA [facility] 4 10:43:08 Date Recorded Systolic And Diastolic Systolic And Diastolic Provider Name and Address Organization Details Last Updated DateTime 09/20/2024 100/70 mm[Hg] 104/70 mm[Hg] LORENZA Chaudhary Attn: Accounting,[address] [place], [address], [facility] 09/20/2024 15:07:34 Date Recorded Body height Body mass index (BMI) Body weight Respiratory rate Oxygen saturation Heart rate Systolic And Diastolic Provider Name and Address Organization Details Last Updated DateTime 4 165.1 cm 36.8 kg/m2 824847. 91 g 20 /min 97 % 83 /min 118/82 mm[Hg] Colby De La Rosa MA [facility] 4 14:37:01 Date Recorded Body height Body mass index (BMI) Body weight Respiratory rate Oxygen saturation Heart rate Systolic And Diastolic Provider Name and Address Organization Details Last Updated DateTime 4 165.1 cm 36.8 kg/m2 231322. 91 g 20 /min 99 % 70 /min 128/82 mm[Hg] Colby De La Rosa MA [facility] 4 14:26:27 Date Recorded Systolic And Diastolic Provider Name and Address Organization Details Last Updated DateTime 10/20/2025 130/80 mm[Hg] LORENZA Chaudhary Attn: Accounting,[address] [place], [address], [facility] 10/20/2025 11:27:04 Date Recorded Body height Body mass index (BMI) Body weight Oxygen saturation Heart rate Respiratory rate Systolic And Diastolic Provider Name and Address Organization Details Last Updated DateTime 5 165.1 cm 38.3 kg/m2 177837. 25 g 98 % 68 /min 18 /min 120/82 mm[Hg] Colby De La Rosa MA [facility] 5 10:54:09 Social History Question Answer Notes LastModified by Organizat ion Details LastModified Time Tobacco Smoking Status Never Smoker Colby De La Rosa MA null, [facility] 03/22/2024 16:06:02 Do You Have An Advance Directive? Yes Information not available 03/22/2024 Are You Blind Or Do You Have Difficulty Seeing? No Information not available 03/22/2024 What Is Your Level Of Caffeine Consumption? Occasional Information not available 03/22/2024 In The 14 Days Before Symptom Onset, Have You Had Close Contact With A Laboratory-confir med COVID-19 While That Case Was Ill? No Information not available 03/22/2024 In The 14 Days Before Symptom Onset, Have You Had Close Contact With A Person Who Is Under Investigation For COVID-19 While That Person Was Ill? No Information not available 03/22/2024 Have You Been To An Area Known To Be High Risk For COVID-19? No Information not available 03/22/2024 Are You Deaf Or Do You Have Serious Difficulty Hearing? Yes Hearing Aids Information not available 03/22/2024 What Type Of Diet Are You Following? REGULAR Information not available 03/22/2024 Are There Any Guns Present In Your Home? No Information not available 03/22/2024 What Was The Date Of Your Most Recent Tobacco Screening? 04/19/2025 Information not available 04/19/2025 What Is Your Relationship Status? Information not available 03/22/2024 Do You Use Your Seat Belt Or Car Seat Routinely? Yes Information not available 03/22/2024 Do You Have Smoke And Carbon Monoxide Detectors In Your Home? Yes Information not available 03/22/2024 Do You Use Sunscreen Routinely? Yes Information not available 03/22/2024 Has Tobacco Cessation Counseling Been Provided? Yes Information not available 03/22/2024 On What Date Was Tobacco Cessation Counseling Provided? 04/19/2025 Information not available 04/19/2025 Sex: Female Functional Status Question Answer Note LastModified by Organizat ion Details LastModified Time Do you use any illicit or recreational drugs? No Information not available 03/22/2024 Do you or have you ever used any other forms of tobacco or nicotine? No Information not available 03/22/2024 What is your level of alcohol consumption? Occasional Information not available 03/22/2024 Are you able to care for yourself independently? Yes Information not available 03/22/2024 What is your exercise level? Occasional walking Information not available 03/22/2024 Mental Status None recorded. Family History Relationship Description Onset Age of this Age Resolved Age Notes LastModified by Organization Details LastModified Time Father Diabetes mellitus [email or web address] Not available 2023 16:13:56 Father Heart disease [email or web address] Not available 2023 16:14:00 Mother Hypertensive disorder [email or web address] Not available 2023 16:14:05 Medical History Condition Response Coronary Artery Disease N Other N Atrial Fibrillation N High Blood Pressure Y Thyroid Problems N Kidney or Bladder Problems Y Depression N COPD N Blood Clots N GI Problems N Skin Problems Y Anemia N Heart Attack (MS) N Diabetes N Anxiety Disorder N Muscle, Joint, or Bone Problems N Seizures/Epilepsy N Acid Reflux (GERD) N Cancer N Stroke N Allergies Y Asthma Y High Cholesterol N Hepatitis N Liver Disease N Headaches N Osteoporosis N Heart Failure N Gynecological History Statement/Question Response Menses Monthly N Obstetrics History GPAL:G 0 P 0 0 0 0 Immunizations Vaccine Type Date Status Note Provider Nam e and Address Organization Details Recorded Time COVID-19, mRNA, LNP-S, PF, 30 mcg/0.3 mL dose 11/16/2021 completed DYLAN [place], [place] - [facility] 09/19/2024 15:55:35 COVID-19, mRNA, LNP-S, PF, 30 mcg/0.3 mL dose 12/20/2020 completed DYLAN [place], [place] [facility] 09/19/2024 15:55:35 COVID-19, mRNA, LNP-S, PF, 30 mcg/0.3 mL dose 01/10/2021 completed DYLAN [place], [place] - [facility] 09/19/2024 15:55:35 Past Encounters Encounter ID Performer Location Encounter Start Date Encounter Closed Date Diagnosis/Indication Diagnosis SNOMED-CT Code Diagnosis ICD10 Code Diagnosis IMO Codes Diagnosis Note [id number] Sunny Mojica MD [facility] [address] [place] [address] 03/22/2024 15:52:50 03/22/2024 17:49:29 Kidney stone 42686615 N20.0 recent reported kidney stone. Generalize d anxiety disorder 73492824 F41.1 stable on lexapro 10mg daily. refilled. Benign ess ential hypertension 1320500 I10 128/80: stable on amlodipine 2.5mg daily. refilled. f/u 6 months. Hyperlipidemia 20396737 E78.5 fasting lipids are due. pt is not taking medication to lower cholestero l at this time. Long-term drug therapy 284701284 Z79.899 cbc and cmp due Thyroid di sorder screening 866066595 Z13.29 routine thyroid function panel due Adult heal th examination 801738606 Z00.01 annual wellness completed. labs ordered Body mass index 30+ - obesity 018207290 Z68.38 bmi 38 Obesity 341378427 E66.9 discussed healthy diet, exercise, controllin g carbohydra chloe and added sugars in the diet [id number] Sunny Mojica MD [facility] [employer] [address] [place] [address] 04/25/2024 10:30:44 04/25/2024 11:29:31 Right upper zone pneumonia 117424359 J18.1 improving as expected. repeat CXR next week at 2 week kaci to assure RUL pneumonia has improved. [id number] Sunny Mojica MD [facility] [employer] [address] [place] [address] 09/20/2024 14:10:26 09/20/2024 15:09:33 Benign essential hypertension 6324761 I10 stable on amlodipine 2.5mg daily. . f/u 6 months. Generalize d anxiety disorder 04420923 F41.1 stable on lexapro 10mg daily. Kidney stone 27997017 N2 0.0 recent reported kidney stone. Hyperlipidemia 64075139 E78.5 fasting lipids are due. pt is not taking medication to lower cholestero l at this time. Long-term drug therapy 165605631 Z79.899 Routine CBC and CMP due Body mass index 30+ - obesity 925290968 Z68.36 bmi 36.8 Obesity 317994764 E66.9 discussed healthy diet, exercise, controllin g carbohydra chloe and added sugars in the diet Diabetes m ellitus screening 470362316 Z13.1 A1c screening due Asthma 038651728 J45.90 9 Start trial of Symbicort 160/4.5 mcg 2 puffs twice a day and can continue albuterol p.r.n. [id number] Sunny Mojica MD [facility] [employer] [address] [place] [address] 10/20/2024 14:10:51 10/20/2024 15:41:22 Urinary tract infectious disease 87989906 N39.0 Patient is currently asymptomat ic from recent urinary tract infection. No further testing. Postmenopausal state 764 70484 Z78.0 Patient is postmenopa usal and reports she is due for her routine DEXA bone density scan Benign ess ential hypertension 4481856 I10 stable on amlodipine 2.5mg daily [id number] Sunny Mojica MD [facility] [employer] [address] [place] [address] 04/19/2025 10:13:44 04/24/2025 11:51:03 Body mass index 30+ - obesity 361975975 Z68.36 bmi 36.4 Obese class II 037484343 1 35227 E66.812 8233389838 discussed healthy diet, exercise, controllin g carbohydra chloe and added sugars in the diet Benign ess ential hypertension 9495708 I10 stable on amlodipine 2.5mg daily. . f/u 6 months. Refill provided Generalize d anxiety disorder 30430993 F41.1 stable on lexapro 10mg daily. Refill provided Hyperlipidemia 67013458 E78.5 fasting lipids are due. pt is not taking medication to lower cholestero l at this time. Asthma 207332181 J45.90 9 Stable on albuterol PRN Long-term drug therapy 160700437 Z79.899 Routine CBC and CMP due Adult heal th examination 578098847 Z00.00 4829566 annual wellness completed. labs ordered Thyroid di sorder screening 364383658 Z13.29 routine thyroid function panel due History of clinical finding in subject 546507601 Z87.986 9841264 Prescripti on for scopolamin e patches and meclizine given for upcoming travel Prediabetes 118461538 R7 3.03 327237 Stable 5.9% A1c continue dietary efforts and exercise [id number] Sunny Mojica MD [facility] [employer] [address] [place] [address] 10/20/2025 10:41:41 10/20/2025 11:29:52 Osteopenia 383929520 M85.80 Obese class II 438481935 1 66847 E66.812 E66.3 3836552202 discussed healthy diet, exercise, controllin g carbohydra chloe and added sugars in the diet Generalize d anxiety disorder 80618623 F41.1 Benign ess ential hypertension 2952731 I10 stable on amlodipine 2.5mg daily. . f/u 6 months. Refill provided Hyperlipidemia 61196953 E78.5 fasting lipids are due. pt is not taking medication to lower cholestero l at this time. Asthma 337977660 J45.90 9 Long-term drug therapy 375542483 Z79.899 Routine CBC and CMP due in January Diabetes m ellitus screening 270806785 Z13.1 393341 A1c screening due in january Body mass index 30+ - obesity 154497371 Z68.38 076293 Allergic rhinitis 565464 04 J30.9 8241165 Health Concerns Section Related Observation LastModified by Organization Detai ls LastModified Time None Recorded Concern Status LastModified by Organization Details LastModified Time None Recorded Advance Directives Directive Y: Payers Insurance Date Sequence Insurance Name Policy Number Policy Chapman Covered Member ID Chapman Member ID Guarantor Name 10/17/2025 1 [facility] [id number] Barbara Martinez [id number] Barbara Martinez Notes Date Note Type Note Provider Name and Address Organization Details Recorded Time 4 text/html Pneumonia RLL, urgent care visit 04-18-24, placed on amoxil 500mg , she is feeling better. also had prednisone that helps her as well. today is last day of abx. she was so winded before and tired and now she is feeling close to normal. LORENZA Chaudhary Attn: Accounting,[address] [facility], [place], [address], [facility] 05/12/2024 20:23:01 4 text/html HyperlipidemiaReported by Patienthx of mild lipids elevations, not taking medication per her choice. HypertensionReported by Patientpt is taking amlodipine 2.5mg daily. stable. Asthma F/UReported by PatientPatient is interested in having maintenance steroid daily inhaler therapy to better control her asthma. Currently she is only on p.r.n. albuterol inhaler Anxiety/DepressionReported by Patientpt is taking lexapro 10mg daily. LORENZA Chaudhary Attn: Accounting,[address] [facility], [place], [address], [facility] 10/07/2024 14:41:27 4 text/html Lower Urinary Tract Symptoms (LUTS)Reported by PatientAt the end of September patient had urinary tract infection and was seen at the urgent care and given Augmentin. She has completed the antibiotic course. She does have improvement in her symptoms with no concerns. She is here for follow-up LORENZA Chaudhary Attn: Accounting,[address] [facility], [place], [address], [facility] 11/06/2024 22:33:32 5 text/html HyperlipidemiaReported by Patienthx of mild lipids elevations, not taking medication per her choice. HypertensionReported by Patientpt is taking amlodipine 2.5mg daily. stable. Asthma F/UReported by Patient. Currently she is only on p.r.n. albuterol inhaler stable Anxiety/DepressionReported by Patientpt is taking lexapro 10mg daily. LORENZA Chaudhary Attn: Accounting,[address] [facility], [place], [address], [facility] 05/05/2025 07:22:02 OBGyn Episode No OBEpisode recorded.
--- OUTSIDE RECORDS SUMMARY | 2025-10-27 02:50 | XMS_ITS | Clinical Summary ---
Author Organization [facility] Address [address] [place] [address] Phone Care Team Providers Care Real Estate Firm Manager Name Role Phone Izabel Blount Primary Care Provider [phone] Allergies Active Allergy Reactions Criticality Noted Date Comments Iodinated Contrast Media Rash Medium 12/18/2014 Sulfa Antibiotics Rash Medium 09/01/2013 Medications albuterol HFA (PROVENTIL HFA) 108 (90 Base) MCG/ACT inhaler Inhale 1 puff every 4 (four) hours if needed Active amLODIPine (NORVASC) 2.5 MG tablet Take 2.5 mg by mouth in the morning. 07/17/2021 Active escitalopram (LEXAPRO) 20 MG tablet Take 20 mg by mouth 1 (one) time each day 08/26/2024 Active cetirizine (ZyrTEC) 10 MG tablet Take 10 mg by mouth 1 (one) time each day Active Active Problems Problem Noted Date Diagnosed Date Nephrolithiasis 09/22/2024 Essential hypertension 09/22/2024 Encounters Date Type Department Care Team Description 09/25/2025 1:40 PM CORPORATE REAL ESTATE MANAGER Office Visit [facility] [address] [place] [address] Boogie Thrasher PA Nephrolithiasis (Primary Dx); Hypercalciuria; Hyperoxaluria 07/28/2025 Orders Only [facility] [address] [place] [address] Rocío Farias MA Essential (primary) hypertension (Primary Dx); Nephrolithiasis from Last 3 Months Social History Tobacco Use Types Packs/Day Years Used Date Smoking Tobacco: Never Smokeless Tobacco: Never Tobacco Cessation:Counseling Given: Not Answered Alcohol Use Standard Drinks/Week Comments Yes 0 (1 standard drink = 0.6 oz pur e alcohol) 1-2 a month Comments Unknown Sex and Gender Information Value Date Recorded Sex Assigned at Not on file Legal Sex Female 12:12 PM MDT Gender Identity Not on file Sexual Orientation Not on file Last Filed Vital Signs Vital Sign Reading Time Taken Comments Blood Pressure 105/73 09/25/2025 1:35 PM CORPORATE REAL ESTATE MANAGER Pulse 80 09/25/2025 1:35 PM CORPORATE REAL ESTATE MANAGER Temperature - - Respiratory Rate - - Oxygen Saturation - - Inhaled Oxygen Concentration - - Weight 103 kg (228 lb) 09/25/2025 1:35 PM CORPORATE REAL ESTATE MANAGER Height 165.1 cm (5' 5) 09/25/2025 1:35 PM CORPORATE REAL ESTATE MANAGER Body Mass Index 37.94 09/25/2025 1:35 PM CORPORATE REAL ESTATE MANAGER Plan of Treatment Upcoming Encounters Date Type Department Care Team (Late st Contact Info) Description 09/24/2026 1:20 PM CORPORATE REAL ESTATE MANAGER Office Visit [facility] [address] [place], [place] [id number] Boogie Thrasher PA [address] [place] [address] Health Maintenance Due Date Last Done Comments Pneumococcal PPSV23 Highest Risk Adult (1 of 3 - PCV13) 1979 COVID-19 Vaccine ( season) 2025 11/16/2021, 01/10/2021, 12/20/2020 Influenza Vaccine (#1) 2025 Procedures Procedure Name Priority Date/Time Associated Diagnosis Comments LITHOLINK 24-HOUR URINE, [place] Routine 08/26/2025 7:00 AM CDT Essential (primary) hypertension Nephrolithiasis from Last 3 Months Results * (ABNORMAL) Litholink 24-Hour Urine Panel (08/26/2025 7:00 AM CDT) CYSTINE, URINE, QUALITATIVE CANCELED [facility] 1 Comment: Test not performed. Previous test results on file. Result canceled by the ancillary. Volume, 24-Hour Urine 2,810 500 - 4,000 mL/24 hr [facility] 1 Calcium oxalate index, 24 hour Urine 6.92 6.00 - 10.00 [facility] 1 Calcium, 24 hour Urine 234(H) <200 mg/24 hr [facility] 1 Oxalate, 24 hour Urine 57(H) 20 - 40 mg/24 hr [facility] 1 Comment:The urine Ox result was verified by repeat analysis. Citrate, 24 hour Urine 880 >550 mg/24 hr [facility] 1 CALCIUM PHOSPHATE SATURATION 1.66 0.50 - 2.00 [facility] 1 pH of 24 hour Urine 6.856(H) 5.800 - 6.200 [facility] 1 Urate, 24 hour Urine 0.11 <1.00 [facility] 1 Uric Acid (Urate), 24 Hour Urine 858(H) <750 mg/24 hr [facility] 1 Sodium, 24 hour Urine 141 50 - 150 mmol/24 hr [facility] 1 Potassium, 24 hour Urine 53 20 - 100 mmol/24 hr [facility] 1 Magnesium, 24 hour Urine 141(H) 30 - 120 mg/24 hr [facility] 1 Phosphate, 24 hour Urine 849 600 - 1,200 mg/24 hr [facility] 1 AMMONIUM, URINE 33 15 - 60 mmol/24 hr [facility] 1 Chloride, 24 hour Urine 127 70 - 250 mmol/24 hr [facility] 1 Sulfate, 24 hour Urine 29 20 - 80 meq/24 hr [facility] 1 Urea nitrogen, 24 hour Urine (UUN) 9.06 6.00 - 14.00 g/24 hr [facility] 1 PROTEIN CATABOLIC RATE 0.8 0.8 - 1.4 g/kg/24 hr [facility] 1 Creatinine, 24 hour Urine 1,134 Not Applic. mg/24 hr [facility] 1 CREATININE / KG BODY WEIGHT 11.9 8.7 - 20.3 mg/24 hr/kg [facility] 1 Calcium/Kg Body Weight 2.5 <4.0 mg/24 hr/kg [facility] 1 RATIO CALCIUM TO CREATININE UA 207 51 - 262 mg/g creat [facility] 1 COMMENT Note [facility] 1 Comment: The date and/or time of collection was not indicated on the collection form as required by state and federal law. The date and time of collection were adjusted based on the receipt date of the specimen if not supplied, or based on limited data supplied by patient. PDF . [facility] 1 08/26/2025 7:00 AM CDT 08/27/2025 11:00 PM CDT Narrative [facility] - 09/01/2025 2:07 AM CDT Test(s) 006223-Fbzsbux, Urine, Qualitative; 165030-Vlfwbmn, Urine; 673382-rT, 24 hr, Urine; 824611-Tksqfwum, Urine; 525506- Sulfate, Urine was developed and its performance characteristics determined by [facility]. It has not been cleared or approved by the Food and Drug Administration. Performed at: - [facility] [id number] Claims Supervisor: Shlomo Del Valle PhD, Phone: [phone] us Boogie BRITT LAB URINE ORDERABLES Edited Res ult - [facility] 1 from Last 3 Months Insurance [employer] Mobile PaymentNA Care Teams Real Estate Firm Manager Relationship Specialty Start Date End Date Izabel Blount PA [address] [place] [id number] PCP - General Family Medicine 09/25/25
--- NOTE | 2025-10-27 06:26 | WPDHPUPDATE1 ---
History and Physical Update Update Date/Time: 10/27/25 06:26 History and Physical has been reviewed, including an updated exam of the patient. There are NO changes in the patient's condition. Risks, benefits, and alternatives have been discussed and questions answered. Patient agrees to proceed with procedure.
--- NOTE | 2025-10-27 07:10 | WPDANESEPPF ---
Anes - Initial Pre Proc Eval Procedure: Operation Date: 10/27/25 07:30 Proposed Procedures p Left Extracorporeal Shock Wave Lithotripsy - Pk Lozano MD Date/Time: 10/27/25 07:10 Surgeon: Pk Lozano MD Pre Op Diagnosis: left renal stones Patient Data Age: 65 Gender: F Height: 1.65 m Weight: 103.9 kg Last Vital Signs Temp 97.6 F 10/27/25 06:15 Pulse 64 10/27/25 06:15 Resp 18 10/27/25 06:15 BP 143/70 H 10/27/25 06:15 Pulse Ox 100 10/27/25 06:15 O2 Del Method Room Air 10/27/25 06:15 Allergies Allergy/AdvReac Type Severity Reaction Status Date / Time Sulfa (Sulfonamide Allergy Mild Rash Verified 10/27/25 07:00 Antibiotics) Contrast Media Allergy Mild rash Uncoded 09/30/24 09:08 Home Medications ?Medication ?Instructions ?Recorded ?Confirmed ?Type amlodipine 2.5 mg tablet 2.5 mg PO DAILY #90 tabs 11/25/23 10/27/25 Rx escitalopram oxalate 10 mg tablet 10 mg PO DAILY #30 tabs 02/01/24 10/20/25 Rx cholecalciferol (vitamin D3) 25 25 mcg PO DAILY 03/02/24 10/27/25 History mcg (1,000 unit) tablet (Vitamin D3) albuterol sulfate 90 mcg/actuation 2 puff inhalation QID PRN 05/17/24 10/20/25 Rx aerosol inhaler shortness of breath or wheezing #6.7 grams inhalational spacing device #1 ea 05/17/24 10/20/25 Rx (Aerochamber MV spacer) fluticasone propionate 50 1 spray intranasal DAILY PRN 10/20/25 10/20/25 History mcg/actuation nasal allergy symptoms spray,suspension (24 Hour Allergy Relief) Patient hx anesthesia problems: none Family hx anesthesia problems: none Results Review: All pre-operative results and documents have been reviewed as part of the pre-operative evaluation. [facility] Past Medical History Medical History Vertigo Generalized anxiety disorder Allergic rhinitis HTN (hypertension) GERD (gastroesophageal reflux disease) Asthma Surgical History Surgical History History of surgery on wrist Rt wrist ORIF distal radius fx. Left ORIF wrist on 08/07/[address] Campos Family History Family History Mother Hypertension Father Throat cancer Diabetes mellitus Heart disease Social History Social History Smoking status: Never smoker Second hand tobacco smoke exposure: No Alcohol intake: current Alcohol use details: RARE Substance use: never Substance use type: does not use Lack of Transportation: No Lack of Food: Never True Current Housing: I Have Housing Concerned About Future Housing: No Difficulty Paying Gas/Electric Bills: No Difficulty Paying for Meds: No Currently Unemployed: YES Education: Master's Degree or Higher Difficulty w/ Childcare or Family Care: No Living arrangements: with family Additional living arrangements comments: Occupation/Education: retired Gender identity (if verbalized by the patient): Female Sexual Orientation (if Verbalized by the Patient): Straight or Heterosexual Spiritual care concerns: No Anes - Eval Final PreProcedure Day of Procedure 10/27/25 07:10 Patient weight: obese Lungs: normal air movement Airway: Mallampati scale class II Neurological: alert and oriented Last oral intake: >/= 8 hours ASA classification: III Emergent: no Anesthetic plan: proceed Anesthesia type and monitoring: general LMA and standard monitoring Results Review: All pre-operative results and documents have been reviewed as part of the pre-operative evaluation. HTN, GERD w good control, active w w strength training/cardio recently, no cp or sob. Informed Consent: The patient's anesthetic plan and its attendant risks and benefits were discussed with the patient/family/POA. Questions were solicited and answers provided to the satisfaction of the patient/family/POA.
[2025-10-27] MEDS: ceFAZolin 2 GM in SODIUM CHLORIDE 0.9% IV 50 ML 100 ML IVPB (07:25)
[2025-10-27] MEDS: LACTATED RINGERS 1,000 ML 30 ML IV CONT (08:12)
--- NOTE | 2025-10-27 08:20 | W.PM.PROC2 ---
Procedure Note - Detailed Date of Procedure 10/27/25 Pre-op Diagnosis Left renal stones Post-op Diagnosis Same Procedure Performed Left ESWL Surgeon Pk Lozano MD Anesthesia General Description of Procedure The patient was brought to the operative suite where she was placed in the supine position on the Dornier lithotripsy table. The focal point of the lithotripter was placed at a 5mm left renal calculus. A total of 2500 shocks were delivered at a power setting of 4. There appeared to be good fragmentation of the stone. The patient tolerated the procedure well and was taken to the recovery room in good condition. Drains No Complications No immediate complications
== END 2025-10-27 09:41 | disposition home or self-care (01) ==
PROVIDERS: PCP Physician Assistant; Visit Provider Urology
PROC: (CPT 50590; principal; 2025-10-27 07:30)
DX: N20.0 Calculus of kidney (principal); R35.0 Frequency of micturition; R31.1 Benign essential microscopic hematuria; I10 Essential (primary) hypertension; K21.9 Gastro-esophageal reflux disease without esophagitis; J45.909 Unspecified asthma, uncomplicated; F41.9 Anxiety disorder, unspecified; E66.9 Obesity, unspecified; Z68.38 Body mass index [BMI] 38.0-38.9, adult; Z79.51 Long term (current) use of inhaled steroids; Z98.890 Other specified postprocedural states; Z80.1 Family history of malignant neoplasm of trachea, bronchus and lung; Z82.49 Family history of ischemic heart disease and other diseases of the circulatory system
CPT/HCPCS: 50590; 74018; J0690; J1100; J2405; J2704; J7120